=== PATIENT | female | born 1940 | race Caucasian/White ===

== ENCOUNTER 2024-04-22 15:50 | Emergency (ER) | payer BC, MEDICARE, SELFPAY ==
[2024-04-22] VITALS (11 sets, daily range): BP systolic 118–156; BP diastolic 65–78; PULSE 69–85; RESP 16–18; TEMP 36.4; O2SAT 96–100; BMI 23.6
--- NOTE | 2024-04-22 17:25 | DI.RAD.S_ITS ---
PROCEDURE: XR ACUTE ABDOMEN SERIES INDICATIONS: abd pain, ?constipation TECHNIQUE: One view chest and two views of the abdomen were acquired. COMPARISON: None. FINDINGS: Surgical changes and devices: None. Chest: Lungs are clear. Heart size is normal. No pleural effusions. No pneumoperitoneum. Abdomen: Dilated gas distended loops of small bowel predominantly in the left lower abdomen. Gaseous distension of the large bowel. Stool is seen within the rectum. No pneumoperitoneum. Bones: No suspicious bony lesions. IMPRESSION: Dilated gas distended small bowel loops predominantly in the left lower abdomen. Findings may represent ileus versus early/partial obstruction. Approved by: Kirstie Nye M.D.,Ph.D. on 04/22/2024 at 18:15
[2024-04-22 17:46] LABS: INR 0.9 (0.9-1.3); Prothrombin Time 10.7 SECONDS (9.4-12.5)
[2024-04-22 17:49] LABS: Add Manual Diff / Slide Review NO; Basophils Absolute Auto 0 /uL (0-100); Basophils Percent Auto 0.3 % (0-2); Eosinophils Absolute Auto 0 /uL (0-450); Eosinophils Percent Auto 0.2 % (2-4); Hematocrit 40.8 % (36-46); Hemoglobin 13.8 g/dL (12.0-16.0); Lymphocytes Absolute Auto 1900 /uL (1100-4500); Lymphocytes Percent Auto 30.3 % (25-40); Mean Corpuscular HGB Conc 33.7 % (30-36); Mean Corpuscular Hemoglobin 32.5 PG (26-34); Mean Corpuscular Volume 96.4 fL (80-100); Monocytes Absolute Auto 500 /uL (0-900); Monocytes Percent Auto 7.7 % (3-14); Neutrophils Absolute Auto 3800 /uL (1500-7000); Neutrophils Percent Auto 61.5 % (50-75); Platelet Count 237 X10^3/uL (150-400); Red Blood Cell Count 4.23 X10^6/uL (4.0-5.2); Red Cell Distribution Width 13.4 % (11.6-14.8); White Blood Cell Count 6.2 X10^3/uL (4.5-11.0)
[2024-04-22 18:09] LABS: Alanine Aminotransferase 25 IU/L (<35); Albumin 4.5 g/dL (3.5-5.0); Albumin Globulin Ratio 1.6 (1.0-2.8); Alkaline Phosphatase 80 U/L (38-126); Aspartate Aminotransferase 34 IU/L (14-36); BUN Creatinine Ratio 23.2 (6-22); Bilirubin Total 0.5 mg/dL (0.2-1.3); Blood Urea Nitrogen 13 mg/dL (7-17); Calcium 9.9 mg/dL (8.4-10.2); Carbon Dioxide 25 mmol/L (22-32); Chloride 94 mmol/L (98-107); Estimated Glomerular Filt Rate > 60 mL/min (>60); Globulin 2.8 g/dL (1.7-4.1); Glucose 109 mg/dL (80-110); HEMOLYSIS < 15 (0-50); Lipase 254 U/L (23-300); Potassium 3.8 mmol/L (3.4-5.1); Sodium 127 mmol/L (137-145); Total Protein 7.3 g/dL (6.3-8.2)
--- NOTE | 2024-04-22 18:22 | DI.CT.S_ITS ---
PROCEDURE: CT ABDOMEN PELVIS W CON INDICATIONS: ABD DISTENSION TECHNIQUE: After the administration of intravenous contrast, axial sections acquired from the lung bases to the pubic symphysis. Coronal and sagittal reformats were performed. For radiation dose reduction, the following was used: automated exposure control, adjustment of mA and/or kV according to patient size. COMPARISON: None. FINDINGS: Image quality: Diagnostic. Lower Chest: No significant findings. ABDOMEN: Liver: No solid mass. Gallbladder: No radiopaque gallstones or wall thickening. Biliary ducts: No biliary dilation. Pancreas: No ductal dilation. Spleen: Size is within normal limits. Adrenal Glands: No adrenal nodules. Kidneys and Ureters: Mild bilateral hydronephrosis. No solid mass. No complex renal cystic lesion which requires follow up. Stomach and Bowel: Normal colonic caliber, without significant wall thickening. No evidence of small-bowel obstruction. Gas distended loops of large bowel. Rectal stool ball without significant inflammation. Normal caliber appendix in the right lower quadrant. Peritoneum: No abnormal intraperitoneal fluid. No free air. Ventral Wall: No significant ventral hernia. Abdominal Nodes: No retroperitoneal or mesenteric adenopathy by size criteria. Vessels: Aorta and inferior vena cava are normal in size. PELVIS: Pelvic Organs: Unremarkable. Bladder: Markedly distended bladder. No abnormal or focal wall thickening . Pelvic Nodes: No enlarged lymph nodes. Miscellaneous: No inguinal hernias are seen. Bones: No aggressive osseous abnormality. Degenerative changes without acute vertebral body compression fracture. IMPRESSION: Markedly distended bladder with mild associated hydronephrosis. Large rectal stool ball with mild surrounding soft tissue thickening which can be seen in the setting of stercoral colitis. Approved by: Kirstie Nye M.D.,Ph.D. on 04/22/2024 at 19:07
[2024-04-22] MEDS: GLYCERIN SUPP ADULT 1 SUPP 1 EACH PR (18:50)
--- NOTE | 2024-04-22 19:27 | ED.ABDPAIN ---
HPI - Abdominal Pain General Chief Complaint: Abdominal Pain Stated Complaint: constipation, ABD pain Time Seen by Provider: 04/22/24 17:25 History of Present Illness HPI narrative: 84-year-old female presents by EMS from home for several days of abdominal pain and constipation. Patient was a poor historian and family member at bedside also unable to provide much additional history. They deny history of dementia but patient does not appear to have good memory and does seem confused, however she was reported to be at her baseline mental status. Patient recently moved to [place] from [place]. Her granddaughter is providing caretaking at home. Over the last several days patient was had worsening abdominal distention and swelling. She was not had a bowel movement in multiple days despite enema administration at home. Exam Initial Vital Signs Initial Vital Signs: Vital Signs Temperature 97.6 F 04/22/24 16:02 Pulse Rate 85 04/22/24 16:02 Respiratory Rate 16 04/22/24 16:02 Blood Pressure 118/69 04/22/24 16:02 Pulse Oximetry 100 04/22/24 16:02 Oxygen Delivery Method Room Air 04/22/24 16:02 Const: Awake, alert, no acute distress, Frail Cardiac: regular rate, regular rhythm RESP: unlabored, clear bilaterally, no wheezing GI: Soft, lower abdominal distention, generalized tenderness to palpation Skin: Warm, Dry, intact, no rashes Neuro: AO x2, CN II-XII grossly intact, moves all extremities Course Orders Ordered: ED Orders 04/22/24 16:10 Complete Blood Count AUTO DIFF Stat Comprehensive Metabolic Panel Stat Lipase Stat Prothrombin Time INR Stat 04/22/24 17:25 XR acute abdomen series Stat 04/22/24 17:38 EKG-12 Lead Stat 04/22/24 18:22 CT abdomen pelvis w con Stat Discontinued Medications Glycerin (Glycerin Supp Adult 1 Supp) 1 each KS NOW ONE Stop: 04/22/24 18:23 Last Admin: 04/22/24 18:50 Dose: 1 each Documented By: FRANCISCO JAVIER Morphine Sulfate (Morphine 4 Mg/Ml Inj) 4 mg IV NOW ONE Stop: 04/22/24 19:27 Last Admin: 04/22/24 22:08 Dose: Not Given Documented By: FRANCISCO JAVIER Ondansetron HCl (Ondansetron 4 Mg/2 Ml Inj) 4 mg IV NOW PRN PRN Reason: Nausea And Vomiting Ondansetron HCl (Ondansetron 4 Mg Odt) 4 mg PO NOW PRN PRN Reason: Nausea And Vomiting Sodium Biphosphate/Sodium Phosphate (Fleets Enema) 2 each KS NOW ONE Stop: 04/22/24 20:35 Last Admin: 04/22/24 21:01 Dose: 1 each Documented By: FRANCISCO JAVIER Vital Signs Vital signs: Vital Signs - 8 hr 04/22/24 16:02 04/22/24 17:36 04/22/24 17:36 Temperature 97.6 F Pulse Rate 85 75 Respiratory Rate 16 Blood Pressure 118/69 147/73 H Pulse Oximetry 100 99 Oxygen Delivery Method Room Air 04/22/24 18:00 04/22/24 18:00 04/22/24 18:30 Temperature Pulse Rate 75 76 Respiratory Rate Blood Pressure 143/65 H Pulse Oximetry 100 100 Oxygen Delivery Method 04/22/24 18:30 04/22/24 18:48 04/22/24 18:48 Temperature Pulse Rate 73 Respiratory Rate Blood Pressure 156/78 H 154/67 H Pulse Oximetry 100 Oxygen Delivery Method 04/22/24 19:00 04/22/24 19:00 04/22/24 19:30 Temperature Pulse Rate 69 Respiratory Rate Blood Pressure 156/72 H 156/78 H Pulse Oximetry 99 Oxygen Delivery Method 04/22/24 19:30 04/22/24 20:10 04/22/24 20:30 Temperature Pulse Rate 75 71 73 Respiratory Rate 18 18 Blood Pressure Pulse Oximetry 100 98 96 Oxygen Delivery Method 04/22/24 21:31 04/22/24 21:32 Temperature Pulse Rate 75 Respiratory Rate 18 Blood Pressure 152/66 H Pulse Oximetry 98 Oxygen Delivery Method MDM - Abdominal Pain Differential Diagnosis Differential diagnosis: Likely abdominal pain, constipation and diverticulitis Lab Data 04/22/24 16:10 04/22/24 16:10 Labs: Lab Results 04/22/24 Range/Units 16:10 WBC 6.2 (4.5-11.0) X10^3/uL RBC 4.23 (4.0-5.2) X10^6/uL Hgb 13.8 (12.0-16.0) g/dL Hct 40.8 (36-46) % MCV 96.4 (80-100) fL MCH 32.5 (26-34) PG MCHC 33.7 (30-36) % RDW 13.4 (11.6-14.8) % Plt Count 237 (150-400) X10^3/uL Neut % (Auto) 61.5 (50-75) % Lymph % (Auto) 30.3 (25-40) % Merrick % (Auto) 7.7 (3-14) % Eos % (Auto) 0.2 L (2-4) % Baso % (Auto) 0.3 (0-2) % Neut # (Auto) 3800 (6623-3134) /uL Lymph # (Auto) 1900 (1826-3435) /uL Merrick # (Auto) 500 (0-900) /uL Eos # (Auto) 0 (0-450) /uL Baso # (Auto) 0 (0-100) /uL PT 10.7 (9.4-12.5) SECONDS INR 0.9 (0.9-1.3) Sodium 127 L (137-145) mmol/L Potassium 3.8 (3.4-5.1) mmol/L Chloride 94 L (98-107) mmol/L Carbon Dioxide 25 (22-32) mmol/L BUN 13 (7-17) mg/dL Creatinine 0.56 (0.52-1.04) mg/dL Estimated GFR > 60 (>60) mL/min BUN/Creatinine Ratio 23.2 H (6-22) Glucose 109 (80-110) mg/dL Calcium 9.9 (8.4-10.2) mg/dL Total Bilirubin 0.5 (0.2-1.3) mg/dL AST 34 (14-36) IU/L ALT 25 (<35) IU/L Alkaline Phosphatase 80 (38-126) U/L Total Protein 7.3 (6.3-8.2) g/dL Albumin 4.5 (3.5-5.0) g/dL Globulin 2.8 (1.7-4.1) g/dL Albumin/Globulin Ratio 1.6 (1.0-2.8) Lipase 254 (23-300) U/L Point of care testing: Urine Dip Bedside Urine Glucose Negative Bedside Urine Bilirubin - Negative Bedside Urine Ketone - Negative Urine Specific [place] 1.005 Bedside Urine Occult Blood - Negative Bedside Urine pH 7.5 Bedside Urine Protein - Negative Bedside Urine Urobilinogen - Negative Bedside Urine Nitrite - Negative Bedside Urine Leukocytes - Negative Esterase Imaging Data CT scan - abdomen/pelvis: Radiologist's Impression: PROCEDURE: CT ABDOMEN PELVIS W CON INDICATIONS: ABD DISTENSION TECHNIQUE: After the administration of intravenous contrast, axial sections acquired from the lung bases to the pubic symphysis. Coronal and sagittal reformats were performed. For radiation dose reduction, the following was used: automated exposure control, adjustment of mA and/or kV according to patient size. COMPARISON: None. FINDINGS: Image quality: Diagnostic. Lower Chest: No significant findings. ABDOMEN: Liver: No solid mass. Gallbladder: No radiopaque gallstones or wall thickening. Biliary ducts: No biliary dilation. Pancreas: No ductal dilation. Spleen: Size is within normal limits. Adrenal Glands: No adrenal nodules. Kidneys and Ureters: Mild bilateral hydronephrosis. No solid mass. No complex renal cystic lesion which requires follow up. Stomach and Bowel: Normal colonic caliber, without significant wall thickening. No evidence of small-bowel obstruction. Gas distended loops of large bowel. Rectal stool ball without significant inflammation. Normal caliber appendix in the right lower quadrant. Peritoneum: No abnormal intraperitoneal fluid. No free air. Ventral Wall: No significant ventral hernia. Abdominal Nodes: No retroperitoneal or mesenteric adenopathy by size criteria. Vessels: Aorta and inferior vena cava are normal in size. PELVIS: Pelvic Organs: Unremarkable. Bladder: Markedly distended bladder. No abnormal or focal wall thickening . Pelvic Nodes: No enlarged lymph nodes. Miscellaneous: No inguinal hernias are seen. Bones: No aggressive osseous abnormality. Degenerative changes without acute vertebral body compression fracture. IMPRESSION: Markedly distended bladder with mild associated hydronephrosis. Large rectal stool ball with mild surrounding soft tissue thickening which can be seen in the setting of stercoral colitis. Approved by: Kirstie Nye M.D.,Ph.D. on 04/22/2024 at 19:07 MDM Narrative Medical decision making narrative: frail but nontoxic patient presenting with 3 days of symptoms. History is limited as patient is poor historian and family unable to provide much additional history. Abdomen soft but definitely distended. IV pain medications ordered, labs, CT imaging ordered. Laboratory work shows significant stool burden, urinary retention. Family states that they gave triage nurse a list of medications, but I can not find this list of medications and they do not know the names off the top of their head. Catheter was placed with drainage of 1 L of clear yellow urine. After glycerin suppository and enema patient had large bowel movement. She reported feeling significantly better after catheter placement and bowel movement. Laboratory work reviewed, only abnormal value is sodium of 127. Uncertain chronicity as patient has no previous lab values, however she currently feels much better and has primary care appointment scheduled for tomorrow. Family given clean out regimen protocol and catheter instructions. Urology follow up referral number provided. Discharge Plan Departure Patient Disposition: Home Clinical Impression: Constipation, Acute urinary retention Instructions: DI for Constipation, How to Care for Your Hawk Catheter -- Female, DI for Urinary Retention in Women Activity Restrictions/Additional Instructions: Your blood work today looked good. On your CT scan you had both constipation and urinary retention, which is why you were so uncomfortable. The catheter will need to stay in place until you follow up with primary care or Urology. Take a daily stool softener to help prevent constipation. Follow the clean out protocol paperwork provided Referrals: Lana Lomeli ARNP [Primary Care Provider] - David Samuel MD [Physician] - Stand Alone Forms: Patient Portal/API/Survey
[2024-04-22] MEDS: FLEETS ENEMA 2 EACH PR (21:01)
== END 2024-04-22 22:07 | disposition home or self-care (01) ==
PROVIDERS: Emergency Medicine; Emergency Provider Emergency Medicine; PCP Nurse Practitioner
DX: K59.00 Constipation, unspecified (principal); R33.9 Retention of urine, unspecified
CPT/HCPCS: 74022; 74177; 80053; 81003; 83690; 85025; 85610; 99283; 99284; Q9967

== ENCOUNTER → 2024-05-02 14:35 | Outpatient (ROUT) | payer MEDICARE, SELFPAY ==
[2024-05-02 14:57] LABS: Add Manual Diff / Slide Review NO; Alanine Aminotransferase 24 IU/L (<35); Albumin 4.2 g/dL (3.5-5.0); Albumin Globulin Ratio 1.6 (1.0-2.8); Alkaline Phosphatase 55 U/L (38-126); Aspartate Aminotransferase 30 IU/L (14-36); BUN Creatinine Ratio 27.6 (6-22); Basophils Absolute Auto 0 /uL (0-100); Basophils Percent Auto 0.5 % (0-2); Bilirubin Total 0.3 mg/dL (0.2-1.3); Blood Urea Nitrogen 16 mg/dL (7-17); Calcium 9.5 mg/dL (8.4-10.2); Carbon Dioxide 26 mmol/L (22-32); Chloride 97 mmol/L (98-107); Cholesterol 187 mg/dL (140-199); Eosinophils Absolute Auto 500 /uL (0-450); Eosinophils Percent Auto 8.9 % (2-4); Estimated Glomerular Filt Rate > 60 mL/min (>60); Globulin 2.7 g/dL (1.7-4.1); Glucose 104 mg/dL (80-110); HDL Cholesterol 86 mg/dL (40-60); HEMOLYSIS < 15 (0-50); Hemoglobin 13.6 g/dL (12.0-16.0); LDL Cholesterol Calculated 76 mg/dL (<100); Lymphocytes Absolute Auto 300 /uL (1100-4500); Lymphocytes Percent Auto 5.6 % (25-40); Mean Corpuscular HGB Conc 33.9 % (30-36); Mean Corpuscular Hemoglobin 32.5 PG (26-34); Mean Corpuscular Volume 96.1 fL (80-100); Monocytes Absolute Auto 100 /uL (0-900); Monocytes Percent Auto 1.4 % (3-14); Neutrophils Absolute Auto 5200 /uL (1500-7000); Neutrophils Percent Auto 83.6 % (50-75); Platelet Count 252 X10^3/uL (150-400); Potassium 3.9 mmol/L (3.4-5.1); Red Blood Cell Count 4.17 X10^6/uL (4.0-5.2); Red Cell Distribution Width 13.2 % (11.6-14.8); Sodium 130 mmol/L (137-145); Total Protein 6.9 g/dL (6.3-8.2); Triglycerides 123 mg/dL (35-150); White Blood Cell Count 6.2 X10^3/uL (4.5-11.0)
[2024-05-02 15:14] LABS: Free T3, Triiodothyronine Free 3.26 pg/mL (2.77-5.27); Free T4, Direct Thyroxine 1.22 ng/dL (0.78-2.19)
[2024-05-02 15:28] LABS: Thyroid Stimulating Hormone 1.25 uIU/mL (0.47-4.68)
== END ==
PROVIDERS: PCP Nurse Practitioner; Visit Provider Nurse Practitioner
DX: E11.610 Type 2 diabetes mellitus with diabetic neuropathic arthropathy (principal); M85.80 Other specified disorders of bone density and structure, unspecified site; I10 Essential (primary) hypertension; K59.00 Constipation, unspecified; F02.A4 Dementia in other diseases classified elsewhere, mild, with anxiety
CPT/HCPCS: 80053; 80061; 84439; 84443; 84481; 85025

== ENCOUNTER → 2024-05-05 08:56 | Outpatient (CLI) | payer MEDICARE, SELFPAY | PROVIDERS: PCP Nurse Practitioner; Visit Provider Urology | DX: N30.01 Acute cystitis with hematuria (principal); R33.8 Other retention of urine; K59.00 Constipation, unspecified; Z87.448 Personal history of other diseases of urinary system | CPT/HCPCS: 51798; 81002; 87077; 87086; 87186; 99214 ==

== ENCOUNTER → 2024-06-07 14:04 | Outpatient (CLI) | payer MEDICARE, SELFPAY ==
[2024-06-07 14:43] LABS: Appearance Urine UA CLEAR; Bilirubin Urine UA NEGATIVE (NEGATIVE); Color Urine UA YELLOW; Glucose Urine UA NEGATIVE (Negative); Ketones Urine UA NEGATIVE (NEGATIVE); Leukocyte Esterase Urine UA NEGATIVE (NEGATIVE); Nitrite Urine UA NEGATIVE (Negative); Occult Blood Urine UA NEGATIVE (Negative); Protein Urine UA NEGATIVE (Negative); Urobilinogen Urine UA 0.2 E.U./dL (0.2)
[2024-06-07 14:44] LABS: Bacteria Urine None Seen; Culture Indicated Urine Cult Not Indicated; RBC Urine 0-1/HPF (0-5/HPF); Squamous Epithelial Cell Urine 1-5 /HPF (0-5/HPF); Urine Volume 10mL (spun); WBC Urine 0-1/HPF (0-5/HPF)
== END ==
LOC: LAB 14:07
PROVIDERS: Family Provider Nurse Practitioner; PCP Nurse Practitioner; Referring Provider Nurse Practitioner; Visit Provider Nurse Practitioner
DX: R41.0 Disorientation, unspecified (principal)
CPT/HCPCS: 81001

== ENCOUNTER → 2024-07-04 13:02 | Outpatient (CLI) | payer MEDICARE, SELFPAY ==
--- NOTE | 2024-07-04 13:03 | DI.US.S_ITS ---
PROCEDURE: US RENAL COMPLETE INDICATIONS: Rule out persistent hydronephrosis TECHNIQUE: Real-time scanning was performed of the kidneys and bladder, with image documentation. COMPARISON: None. FINDINGS: Kidneys: Kidneys are normal in size. Right kidney measures 11.2 cm long; left kidney measures 1.1 cm long. Right renal cortical thickness is 8.6 cm; left renal cortical thickness is 1.4 cm. Renal cortical echotexture is normal. No hydronephrosis or nephrolithiasis. No suspicious solid mass lesions. Bladder: Pre-void bladder volume is 94 mL. Post-void residual is 0 mL. Pre-void images demonstrate no intraluminal masses or stones. On pre-void images, neither ureteral jets are noted with color Doppler interrogation. (Of note, ureteral jets may not be detectable in up to 25% of cases due to insufficient differences in specific gravity between ureteral and bladder urine). Miscellaneous: No free pelvic fluid. IMPRESSION: No hydronephrosis. Dictated by: Max Genao M.D. on 07/04/2024 at 19:12 Approved by: Max Genao M.D. on 07/04/2024 at 19:13
== END ==
PROVIDERS: Family Provider Nurse Practitioner; Referring Provider Urology; Visit Provider Urology
DX: Z87.448 Personal history of other diseases of urinary system (principal); Z09 Encounter for follow-up examination after completed treatment for conditions other than malignant neoplasm
CPT/HCPCS: 76770

== ENCOUNTER 2024-07-19 09:45 | Outpatient (RCR) | payer MEDICARE, SELFPAY ==
--- NOTE | 2024-06-22 15:46 | PT.OPPOC ---
Physical, Occupational & Speech Therapy At [facility] Current Diagnoses Hemarthrosis, left shoulder (06/22/24) Pain in right shoulder (06/22/24) Pain in left shoulder (06/22/24) Muscle weakness (generalized) (06/22/24) Visit Care Team Role Provider Type YAIR Larkin Attending Provider Advanced [employer] Worker Family Provider Primary Care Provider Referring Provider Specialty: Family Practice Address: Email: [email or web address] Plan Of Care PT-OP-B Current Condition Start: 06/20/24 07:26 Freq: Status: Active Protocol: Document 06/22/24 10:46 MB (Rec: 06/22/24 11:27 MB [id number]) Current Condition History of Current Condition Onset Date April 2024 Current Complaints Right greater than left shoulder pain History of Current Condition 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 Her right shoulder has started to bother her more since she moved to [place] from [place] in April. She had worked out often in [place] and has worked out less since her fell and broke his hip. He is I. 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 Fauzia has been taking her to [employer] and she has been getting on the treadmill. Any band exercises for shoulders has increased pain. Pt denies headaches and neck pain. Pt is sleeping pretty well. Pt does not have any numbness or tingling in the arms. Fauzia reports that pt has lost a lot of weight, about 14 lb before she moved up to stay with niece. Fauzia reports that pt's stamina has decreased. Heart monitor has been ordered as her BP and HR have been jumping all over the place. Pt had one vertigo spell recently. Prior Treatments and Tests None for shoulders Treatment Goals Patient/Caregiver Goals To increase shoulder ROM and decrease pain PT-OP-T Assessment and Plan Start: 06/20/24 07:26 Freq: Status: Active Protocol: Document 06/22/24 10:46 MB (Rec: 06/22/24 11:27 MB [id number]) Physical Therapy Assessment Goals 3 Impairment Evidence of imbalance Rope Cutter Goal (LTG) Pt will perform WNLs on a standardized balance test such as TUG, Tinetti or Hopson to decrease fall risk. LTG Duration 8 weeks 2 Impairment Lack of HEP Care Home Goal (LTG) Pt will perform progressive HEP with cues including shoulder and thoracic ROM and flexibility, postural exercises, balance and strengthening to improve pain and function. LTG Duration 8 weeks 1 Impairment Limited and painful B shoulder ROM Rope Cutter Goal (LTG) Pt will perform B active shoulder flexion and abduction to at least 150 deg to improve functional use of arms with dressing, bathing and reaching overhead. LTG Duration 8 weeks Assessment Summary Assessment Pt is an 84 y/o female presenting to PT with her niece and caregiver, Fauzia. Fauzia fills out pt's paperwork and answers most questions as she reports pt has dementia. Pt has trouble answering all questions. Fauzia is supportive and will be able to attend OPPT appointments and assist with HEP. Given pt's challenges with answering questions, use of QuickDASH for goals is not indicated. Fauzia reports pt has had some energy issues and will get a archivist [employer] d/t BP and HR changes. Orthostatic assessment with BP and HR in LUE: supine 157/67, 70; standing 136/64, 77; standing 1' 138/72, 75. Pt takes BP medication and she already took medication this a.m. Pt presents with significant postural changes in spine including kyphoscoliosis and pelvic obliquities, forward head, and changes in shoulder height and scapular positioning. She reports anterior shoulder pain with AROM and she presents with severe limitations in B active and passive shoulder ROM, worse on the right. Right elbow MMT is mildly weaker than the left and deferred shoulder testing in setting of limitations. Pt also presents with decreased cervical ROM. Overall, pt presents as an evolving B adhesive capsulitis functional presentation. Pt's degenerative postural changes and decreased cognition are barriers to PT. Once again, her niece is very supportive. Unsure of any other baseline issues such as osteoporosis or osteopenia and pt does present somewhat frail. She will benefit from PT trial to improve pain, range and function. Pt may benefit from orthopedic consult in the future to determine if any other interventions are indicated. Thank you for this referral. Physical Therapy Plan Frequency and Duration Frequency of Treatment 2x/Week Duration of treatment (weeks) 8 Plan of Care Start Date 06/22/24 Plan of Care End Date 08/19/24 Therapeutic Interventions Therapeutic Interventions Balance Training,Canalithic Repositioning,Coordination Training,Gait Training,Home Exercise Program,Joint Mobilizations,Manual Therapy, Neuromuscular Re-education, Patient/Caregiver Education, Self-Care/Home Management, Sensory Integration,Soft Tissue Mobilization,Taping, Therapeutic Activities, Therapeutic Exercises Modalities Cold Pack/Ice Massage,Electric Stimulation,Hot Packs, Ultrasound Next Visit Focus/Plan Next Note Type Treatment Note Next Visit Plan Pelvic realignment exercies, try open book and pulleys, initiate manual work Plan of Care Dates Plan of Care Start Date 06/22/24 Plan of Care End Date 08/19/24 Electronically Signed by: Lulú Smith, PT 06/22/24 0086 If you are in agreement with this Plan of Care, please return a signed and dated copy. I have reviewed this Plan of Care and certify that the skilled therapy services above are required to meet the patient?s needs. Physician Signature Date Printed Name and Credentials Clinical Instructor Signature Printed Name and Credentials
--- NOTE | 2024-06-22 15:47 | PT.OIE ---
Current Diagnoses Hemarthrosis, left shoulder (06/22/24) Pain in right shoulder (06/22/24) Pain in left shoulder (06/22/24) Muscle weakness (generalized) (06/22/24) Past Medical History (Last Updated 05/05/24 @ 09:52 by David Samuel MD) History of hydronephrosis Urinary tract infection Visit Care Team Role Provider Type YAIR Larkin Attending Provider Advanced Manager Of Internal Audit Family Provider Primary Care Provider Referring Provider Specialty: Family Practice Address: Email: [email or web address] Therapy Initial Evaluation PT-OP-A Visit Information Start: 06/20/24 07:26 Freq: Status: Active Protocol: Document 06/22/24 10:46 MB (Rec: 06/22/24 11:27 MB [id number]) Out-Patient Physical Therapy Visit Information Visit Information Visit Type Initial Evaluation Visit Note Fauzia Pratt, arrives to appointment Visit Start Time 10:46 Visit Stop Time 11:26 Visit Number 1 Number of CIGAR PACKER AND SHADER Visits 0 Evaluation Information Evaluation Date 06/22/24 PT-OP-B Current Condition Start: 06/20/24 07:26 Freq: Status: Active Protocol: Document 06/22/24 10:46 MB (Rec: 06/22/24 11:27 MB [id number]) Current Condition History of Current Condition Onset Date April 2024 Current Complaints Right greater than left shoulder pain History of Current Condition 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 Her right shoulder has started to bother her more since she moved to [place] from [place] in April. She had worked out often in [place] and has worked out less since her fell and broke his hip. He is I. 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 Fauzia has been taking her to [employer] and she has been getting on the treadmill. Any band exercises for shoulders has increased pain. Pt denies headaches and neck pain. Pt is sleeping pretty well. Pt does not have any numbness or tingling in the arms. Fauzia reports that pt has lost a lot of weight, about 14 lb before she moved up to stay with chace. Fauzia reports that pt's stamina has decreased. Heart monitor has been ordered as her BP and HR have been jumping all over the place. Pt had one vertigo spell recently. Prior Treatments and Tests None for shoulders Treatment Goals Patient/Caregiver Goals To increase shoulder ROM and decrease pain PT-OP-C Subjective Start: 06/20/24 07:26 Freq: Status: Active Protocol: Document 06/22/24 10:46 MB (Rec: 06/22/24 11:27 MB [id number]) OP-PT Subjective Patient Comments Patient Comments See history of current condition PT-OP-J Posture/Palpation/Skin Start: 06/20/24 07:26 Freq: Status: Active Protocol: Document 06/22/24 10:46 MB (Rec: 06/22/24 11:27 MB [id number]) Posture Evaluation Comments Posture Comments Standing posture with shoes on : head rests in right SB, mild increase in thoracic kyphosis , and right convexity and change to left convexity lower thoracic and lumbar spine and left iliac crest 1/2 higher than the right. Decreased cervical lordosis, increased forward head, mild Dowager's hump, anterior rounded shoulders, right shoulder higher than the left, right shoulder more forward/winged than the left and slightly elevated. PT-OP-K Range of Motion Start: 06/20/24 07:26 Freq: Status: Active Protocol: Document 06/22/24 10:46 MB (Rec: 06/22/24 11:27 MB [id number]) Cervical Spine Range of Motion Cervical Spine Active Testing Position Standing Flexion 42 Extension 30 Rotation Left 50 Rotation Right 50 Lateral Flexion Left 5 Lateral Flexion Right 10 Shoulder Goniometric Range of Motion Shoulder Left Shoulder ROM WFL No Testing Position Standing Flexion 120 Extension 56 Abduction 110 Comments Flexion in scaption plane and pain PT c/o pain with abduction as well Active left IR behind back to T6 In supine, passive ER in 90/90 to 45 deg and ER to 30 deg and painful Right Shoulder ROM WFL No Testing Position Standing Flexion 110 Extension 45 Abduction 100 Comments Flexion in scaption plane and pain Pt c/o pain with abduction as well Active right IR behind back to T12 Pt is right handed In supine, passive abduction to 60 deg only and painful and then ER to 30 deg and IR to 15 deg PT-OP-M Strength Start: 06/20/24 07:26 Freq: Status: Active Protocol: Document 06/22/24 10:46 MB (Rec: 06/22/24 11:27 MB [id number]) Shoulder Strength Shoulder Manual Muscle Testing Bilateral Comments Did not MMT shoulder given reduced range and pain Elbow/Forearm Strength Elbow and Forearm Manual Muscle Testing Left Flexion (C6) 5 Normal Extension (C7) 5 Normal Pronation 5 Normal Supination 5 Normal Right Flexion (C6) 5 Normal Extension (C7) 5 Normal Pronation 4 Good Supination 5 Normal PT-OP-Q Treatments Start: 06/20/24 07:26 Freq: Status: Active Protocol: Document 06/22/24 10:46 MB (Rec: 06/22/24 15:46 MB [id number]) Self-Care/Home Management Treatment Education Patient Education Body Mechanics,Fall Risk,Joint Protection,Pain Management, Posture Other Education Extensive education to pt and niece about PT findings and functional clinical picture, plan to include posture, flexibility and then strengthening in range as appropriate, benefits of ice and heat and pt prefers heat, possible kvng trial in future treatment PT-OP-T Assessment and Plan Start: 06/20/24 07:26 Freq: Status: Active Protocol: Document 06/22/24 10:46 MB (Rec: 06/22/24 11:27 MB [id number]) Physical Therapy Assessment Goals 3 Impairment Evidence of imbalance Mcfp Goal (LTG) Pt will perform WNLs on a standardized balance test such as TUG, Tinetti or Hopson to decrease fall risk. LTG Duration 8 weeks 2 Impairment Lack of HEP Mcfp Goal (LTG) Pt will perform progressive HEP with cues including shoulder and thoracic ROM and flexibility, postural exercises, balance and strengthening to improve pain and function. LTG Duration 8 weeks 1 Impairment Limited and painful B shoulder ROM Vegetable Buncher Goal (LTG) Pt will perform B active shoulder flexion and abduction to at least 150 deg to improve functional use of arms with dressing, bathing and reaching overhead. LTG Duration 8 weeks Assessment Summary Assessment Pt is an 84 y/o female presenting to PT with her niece and caregiver, Fauzia. Fauzia fills out pt's paperwork and answers most questions as she reports pt has dementia. Pt has trouble answering all questions. Fauzia is supportive and will be able to attend OPPT appointments and assist with HEP. Given pt's challenges with answering questions, use of QuickDASH for goals is not indicated. Fauzia reports pt has had some energy issues and will get a aws software development engineer d/t BP and HR changes. Orthostatic assessment with BP and HR in LUE: supine 157/67, 70; standing 136/64, 77; standing 1' 138/72, 75. Pt takes BP medication and she already took medication this a.m. Pt presents with significant postural changes in spine including kyphoscoliosis and pelvic obliquities, forward head, and changes in shoulder height and scapular positioning. She reports anterior shoulder pain with AROM and she presents with severe limitations in B active and passive shoulder ROM, worse on the right. Right elbow MMT is mildly weaker than the left and deferred shoulder testing in setting of limitations. Pt also presents with decreased cervical ROM. Overall, pt presents as an evolving B adhesive capsulitis functional presentation. Pt's degenerative postural changes and decreased cognition are barriers to PT. Once again, her niece is very supportive. Unsure of any other baseline issues such as osteoporosis or osteopenia and pt does present somewhat frail. She will benefit from PT trial to improve pain, range and function. Pt may benefit from orthopedic consult in the future to determine if any other interventions are indicated. Thank you for this referral. Physical Therapy Plan Frequency and Duration Frequency of Treatment 2x/Week Duration of treatment (weeks) 8 Plan of Care Start Date 06/22/24 Plan of Care End Date 08/19/24 Therapeutic Interventions Therapeutic Interventions Balance Training,Canalithic Repositioning,Coordination Training,Gait Training,Home Exercise Program,Joint Mobilizations,Manual Therapy, Neuromuscular Re-education, Patient/Caregiver Education, Self-Care/Home Management, Sensory Integration,Soft Tissue Mobilization,Taping, Therapeutic Activities, Therapeutic Exercises Modalities Cold Pack/Ice Massage,Electric Stimulation,Hot Packs, Ultrasound Next Visit Focus/Plan Next Note Type Treatment Note Next Visit Plan Pelvic realignment exercies, try open book and pulleys, initiate manual work
--- NOTE | 2024-06-28 12:24 | PT.OTN ---
Current Diagnoses Hemarthrosis, left shoulder (06/28/24) Pain in right shoulder (06/28/24) Pain in left shoulder (06/28/24) Muscle weakness (generalized) (06/28/24) Physical Therapy Treatment Note PT-OP-A Visit Information Start: 06/20/24 07:26 Freq: Status: Active Protocol: Document 06/28/24 11:32 MB (Rec: 06/28/24 12:24 MB [id number]) Out-Patient Physical Therapy Visit Information Visit Information Visit Type Treatment Note Visit Note Nimarleni is Fauzia Visit Start Time 11:32 Visit Stop Time 12:12 Visit Number 2 Number of DRILLING FIELD PROFESSIONAL Visits 0 Evaluation Information Evaluation Date 06/22/24 PT-OP-B Current Condition Start: 06/20/24 07:26 Freq: Status: Active Protocol: Document 06/22/24 10:46 MB (Rec: 06/22/24 11:27 MB [id number]) Current Condition History of Current Condition Onset Date April 2024 Current Complaints Right greater than left shoulder pain History of Current Condition 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 Her right shoulder has started to bother her more since she moved to [place] from [place] in April. She had worked out often in [place] and has worked out less since her fell and broke his hip. He is I. 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 Fauzia has been taking her to [employer] and she has been getting on the treadmill. Any band exercises for shoulders has increased pain. Pt denies headaches and neck pain. Pt is sleeping pretty well. Pt does not have any numbness or tingling in the arms. Fauzia reports that pt has lost a lot of weight, about 14 lb before she moved up to stay with chace. Fauzia reports that pt's stamina has decreased. Heart monitor has been ordered as her BP and HR have been jumping all over the place. Pt had one vertigo spell recently. Prior Treatments and Tests None for shoulders Treatment Goals Patient/Caregiver Goals To increase shoulder ROM and decrease pain PT-OP-C Subjective Start: 06/20/24 07:26 Freq: Status: Active Protocol: Document 06/28/24 11:32 MB (Rec: 06/28/24 12:24 MB [id number]) OP-PT Subjective Patient Comments Patient Comments Fauzia reports that pt's right shoulder is really sore today. She states pt has been complaining about it. PT-OP-J Posture/Palpation/Skin Start: 06/20/24 07:26 Freq: Status: Active Protocol: Document 06/22/24 10:46 MB (Rec: 06/22/24 11:27 MB [id number]) Posture Evaluation Comments Posture Comments Standing posture with shoes on : head rests in right SB, mild increase in thoracic kyphosis , and right convexity and change to left convexity lower thoracic and lumbar spine and left iliac crest 1/2 higher than the right. Decreased cervical lordosis, increased forward head, mild Dowager's hump, anterior rounded shoulders, right shoulder higher than the left, right shoulder more forward/winged than the left and slightly elevated. PT-OP-K Range of Motion Start: 06/20/24 07:26 Freq: Status: Active Protocol: Document 06/22/24 10:46 MB (Rec: 06/22/24 11:27 MB [id number]) Cervical Spine Range of Motion Cervical Spine Active Testing Position Standing Flexion 42 Extension 30 Rotation Left 50 Rotation Right 50 Lateral Flexion Left 5 Lateral Flexion Right 10 Shoulder Goniometric Range of Motion Shoulder Left Shoulder ROM WFL No Testing Position Standing Flexion 120 Extension 56 Abduction 110 Comments Flexion in scaption plane and pain PT c/o pain with abduction as well Active left IR behind back to T6 In supine, passive ER in 90/90 to 45 deg and ER to 30 deg and painful Right Shoulder ROM WFL No Testing Position Standing Flexion 110 Extension 45 Abduction 100 Comments Flexion in scaption plane and pain Pt c/o pain with abduction as well Active right IR behind back to T12 Pt is right handed In supine, passive abduction to 60 deg only and painful and then ER to 30 deg and IR to 15 deg PT-OP-M Strength Start: 06/20/24 07:26 Freq: Status: Active Protocol: Document 06/22/24 10:46 MB (Rec: 06/22/24 11:27 MB [id number]) Shoulder Strength Shoulder Manual Muscle Testing Bilateral Comments Did not MMT shoulder given reduced range and pain Elbow/Forearm Strength Elbow and Forearm Manual Muscle Testing Left Flexion (C6) 5 Normal Extension (C7) 5 Normal Pronation 5 Normal Supination 5 Normal Right Flexion (C6) 5 Normal Extension (C7) 5 Normal Pronation 4 Good Supination 5 Normal PT-OP-Q Treatments Start: 06/20/24 07:26 Freq: Status: Active Protocol: Document 06/28/24 11:32 MB (Rec: 06/28/24 12:24 MB [id number]) Therapeutic Exercises Supine Exercises Pelvic realignment exercises Supine Exercise Name HEP Side bilateral Equipment Used Blue ball Reps/Minutes 5 reps, 3 sec hold all exercises in order Comments Feet together ball squeeze iso , knee opp ankle iso, thigh press down iso Sidelying Exercises Open book Sidelying Exercise Name HEP Equipment Used Pillow doubled under head and pillow between legs Comments Cues to work in pain-free range and some pain with adducting right arm back Sitting Exercises Pulleys Sitting Exercise Name HEP: right flexion and scaption less than 90 deg in pain-free range Reps/Minutes Bicycling forward and backwards Comments Forward flexion and cues to limit in tolerable range, scaption Manual Therapy Treatment Consent Patient gave verbal consent for manual Yes treatment Other Other Manual Treatments Pt supine with head and legs supported: Positional release B pects, upper traps, infraspinatus, ribs PT-OP-T Assessment and Plan Start: 06/20/24 07:26 Freq: Status: Active Protocol: Document 06/28/24 11:32 MB (Rec: 06/28/24 12:24 MB [id number]) Physical Therapy Assessment Goals 3 Impairment Evidence of imbalance Hydro Electric Station Operator Goal (LTG) Pt will perform WNLs on a standardized balance test such as TUG, Tinetti or Hopson to decrease fall risk. LTG Duration 8 weeks 2 Impairment Lack of HEP Hydro Electric Station Operator Goal (LTG) Pt will perform progressive HEP with cues including shoulder and thoracic ROM and flexibility, postural exercises, balance and strengthening to improve pain and function. LTG Duration 8 weeks 1 Impairment Limited and painful B shoulder ROM Hydro Electric Station Operator Goal (LTG) Pt will perform B active shoulder flexion and abduction to at least 150 deg to improve functional use of arms with dressing, bathing and reaching overhead. LTG Duration 8 weeks Assessment Summary Assessment Pt has trouble following all commands and working in pain- free range. Pulleys are bothersome to her today. Pt is somewhat apprehensive with manual work, low pain tolerance. Con't PT trial and reassess if need to refer out to orthopedist given pt presentation and low tolerance to pain/treatment. Fauzia is very helpful. Physical Therapy Plan Frequency and Duration Frequency of Treatment 2x/Week Duration of treatment (weeks) 8 Plan of Care Start Date 06/22/24 Plan of Care End Date 08/19/24 Therapeutic Interventions Therapeutic Interventions Balance Training,Canalithic Repositioning,Coordination Training,Gait Training,Home Exercise Program,Joint Mobilizations,Manual Therapy, Neuromuscular Re-education, Patient/Caregiver Education, Self-Care/Home Management, Sensory Integration,Soft Tissue Mobilization,Taping, Therapeutic Activities, Therapeutic Exercises Modalities Cold Pack/Ice Massage,Electric Stimulation,Hot Packs, Ultrasound Next Visit Focus/Plan Next Note Type Treatment Note Next Visit Plan Review if needed (Fauzia may say review not needed, ask niece) : Pelvic realignment exercies and open book, try supine flexion with cane, AAROM shoulders, con't gentle manual work for neck, shoulders and thoracic spine, can consider doorway isometrics with ball for shoulder, scapular retraction and chin tucks
--- NOTE | 2024-07-01 12:15 | PT.OTN ---
Current Diagnoses Hemarthrosis, left shoulder (07/01/24) Pain in right shoulder (07/01/24) Pain in left shoulder (07/01/24) Muscle weakness (generalized) (07/01/24) Physical Therapy Treatment Note PT-OP-A Visit Information Start: 06/20/24 07:26 Freq: Status: Active Protocol: Document 07/01/24 11:32 SP (Rec: 07/01/24 12:41 SP [id number]) Out-Patient Physical Therapy Visit Information Visit Information Visit Type Treatment Note Visit Note Niece is Fauzia attends appt, give feedback if pt doesn't respond with details she noted pt reports at home. 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 Her right shoulder has started to bother her more since she moved to [place] from [place] in April. She had worked out often in [place] and has worked out less since her fell and broke his hip. He is I. 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 Fauzia has been taking her to [facility] and she has been getting on the treadmill. Any band exercises for shoulders has increased pain. Pt denies headaches and neck pain. Pt is sleeping pretty well. Pt does not have any numbness or tingling in the arms. Fauzia reports that pt has lost a lot of weight, about 14 lb before she moved up to stay with niece. Fauzia reports that pt's stamina has decreased. Heart monitor has been ordered as her BP and HR have been jumping all over the place. Pt had one vertigo spell recently. Prior Treatments and Tests None for shoulders Treatment Goals Patient/Caregiver Goals To increase shoulder ROM and decrease pain PT-OP-C Subjective Start: 06/20/24 07:26 Freq: Status: Active Protocol: Document 07/01/24 11:32 SP (Rec: 07/01/24 12:41 SP [id number]) OP-PT Subjective Patient Comments Patient Comments Pt reports soreness in R bicep /deltoid after last tx. Pt doesnt doesn't remember doing HEP today, neice reports pt performed with no problems. PT-OP-J Posture/Palpation/Skin Start: 06/20/24 07:26 Freq: Status: Active Protocol: Document 06/22/24 10:46 MB (Rec: 06/22/24 11:27 MB [id number]) Posture Evaluation Comments Posture Comments Standing posture with shoes on : head rests in right SB, mild increase in thoracic kyphosis , and right convexity and change to left convexity lower thoracic and lumbar spine and left iliac crest 1/2 higher than the right. Decreased cervical lordosis, increased forward head, mild Dowager's hump, anterior rounded shoulders, right shoulder higher than the left, right shoulder more forward/winged than the left and slightly elevated. PT-OP-K Range of Motion Start: 06/20/24 07:26 Freq: Status: Active Protocol: Document 06/22/24 10:46 MB (Rec: 06/22/24 11:27 MB [id number]) Cervical Spine Range of Motion Cervical Spine Active Testing Position Standing Flexion 42 Extension 30 Rotation Left 50 Rotation Right 50 Lateral Flexion Left 5 Lateral Flexion Right 10 Shoulder Goniometric Range of Motion Shoulder Left Shoulder ROM WFL No Testing Position Standing Flexion 120 Extension 56 Abduction 110 Comments Flexion in scaption plane and pain PT c/o pain with abduction as well Active left IR behind back to T6 In supine, passive ER in 90/90 to 45 deg and ER to 30 deg and painful Right Shoulder ROM WFL No Testing Position Standing Flexion 110 Extension 45 Abduction 100 Comments Flexion in scaption plane and pain Pt c/o pain with abduction as well Active right IR behind back to T12 Pt is right handed In supine, passive abduction to 60 deg only and painful and then ER to 30 deg and IR to 15 deg PT-OP-M Strength Start: 06/20/24 07:26 Freq: Status: Active Protocol: Document 06/22/24 10:46 MB (Rec: 06/22/24 11:27 MB [id number]) Shoulder Strength Shoulder Manual Muscle Testing Bilateral Comments Did not MMT shoulder given reduced range and pain Elbow/Forearm Strength Elbow and Forearm Manual Muscle Testing Left Flexion (C6) 5 Normal Extension (C7) 5 Normal Pronation 5 Normal Supination 5 Normal Right Flexion (C6) 5 Normal Extension (C7) 5 Normal Pronation 4 Good Supination 5 Normal PT-OP-Q Treatments Start: 06/20/24 07:26 Freq: Status: Active Protocol: Document 07/01/24 11:32 SP (Rec: 07/01/24 12:41 SP [id number]) Therapeutic Exercises Supine Exercises scap retraction Supine Exercise Name added to HEP /c HO Side bilateral Resistance arms straight at side Reps/Minutes 5 SH x5 Comments cued scap retraction, light hand press into table shld ROM Supine Exercise Name trialed FF to 90deg and serratus press Side bilateral Equipment Used dowel vs no device support Comments causes pain in front R shld- Hold Pelvic realignment exercises Supine Exercise Name HEP reviewed: Feet together ball squeeze iso, knee opp ankle iso, thigh pre Side bilateral Equipment Used Blue ball Reps/Minutes 5 reps, 3 sec hold all exercises in order Comments cued small range lift /c TA fac, slow engagement and release, not forceful Sidelying Exercises Open book Sidelying Exercise Name HEP Side bilateral Equipment Used Pillow doubled under head and pillow between legs Comments Cues to work in pain-free range and some pain tac. adducting right arm back Sitting Exercises Shld ER Sitting Exercise Name trialed AROM Side bilateral Resistance AROM Reps/Minutes 2 reps Comments cued posture, slow AROM- causes pain R shld to stopped scap retraction Sitting Exercise Name added to HEP /c HO Side bilateral Reps/Minutes 5 SH x5 Comments cued slow gentle contraction- no pain reported Manual Therapy Treatment Consent Patient gave verbal consent for manual Yes treatment Other Other Manual Treatments Pt hooklying with head and legs supported on pillow/wedge : Positional release B pects, upper traps, infraspinatus, deltoid, bicep; R>L GH PA and inferior glide; AAROM RUE FF up to 90 deg pnfree reported. L SL scapulothoracic (2 pillows under head and 1 between BLEs): PROM scapula adduction and depression, AAROM abduction ok through 110 deg painfree, better with humeral inf glide into OH tolerant range. PT-OP-T Assessment and Plan Start: 06/20/24 07:26 Freq: Status: Active Protocol: Document 07/01/24 11:32 SP (Rec: 07/01/24 12:41 SP [id number]) Physical Therapy Assessment Goals 3 Impairment Evidence of imbalance Desulfurizer Machine Goal (LTG) Pt will perform WNLs on a standardized balance test such as TUG, Tinetti or Hopson to decrease fall risk. LTG Duration 8 weeks 2 Impairment Lack of HEP Assisted Goal (LTG) Pt will perform progressive HEP with cues including shoulder and thoracic ROM and flexibility, postural exercises, balance and strengthening to improve pain and function. LTG Duration 8 weeks 1 Impairment Limited and painful B shoulder ROM Assisted Goal (LTG) Pt will perform B active shoulder flexion and abduction to at least 150 deg to improve functional use of arms with dressing, bathing and reaching overhead. LTG Duration 8 weeks Assessment Summary Assessment Pt cues for slow gentle movement and range and pressure during pelvic realignment ex review, follow correctly 2/5 reps. Gentle pressure STMs, small painfree R GH and Scapulothoracic Mobility PROM and PROM R UE. Trialed chest press, serratus press and FF for assess if ok for HEP, causes R shld pain so d/c. GOod response to scap retraction supine and seated, provided HO for carry over home set up and instructions use of HO. Ana bravo can assist pt with cuing needed. AAROM manual support good response if stay within painfreerange. Pt is unableto maintain self painfree range. Pt reports felt ok before left . Physical Therapy Plan Frequency and Duration Frequency of Treatment 2x/Week Duration of treatment (weeks) 8 Plan of Care Start Date 06/22/24 Plan of Care End Date 08/19/24 Therapeutic Interventions Therapeutic Interventions Balance Training,Canalithic Repositioning,Coordination Training,Gait Training,Home Exercise Program,Joint Mobilizations,Manual Therapy, Neuromuscular Re-education, Patient/Caregiver Education, Self-Care/Home Management, Sensory Integration,Soft Tissue Mobilization,Taping, Therapeutic Activities, Therapeutic Exercises Modalities Cold Pack/Ice Massage,Electric Stimulation,Hot Packs, Ultrasound Next Visit Focus/Plan Next Note Type Treatment Note Next Visit Plan Review if needed (Fauzia may say review not needed, ask niece) : Pelvic realignment exercies and open book, recheck scap retraction, can retry supine flexion with cane, AAROM shoulders, con't gentle manual work for neck, shoulders and thoracic spine, can consider doorway isometrics with ball for shoulder, scapular retraction and chin tucks
--- NOTE | 2024-07-05 10:21 | PT-OP ANOTE ---
Called primary contract number and spoke with [id number] (Jeannie) notifying of pt's missed appt. Jeannie states they thought her appt was at 11:30 today (based on message received) and she recommending contacting her daughter, Fauzia, who brings her to appts. Called and spoke with next of kin Fauzia to notify of pt's missed appt and notified her of pt's next appt time and date. Fauzia claims Sophy's appt was at 11:30 on her schedule and apologizes for missed appt.
--- NOTE | 2024-07-15 14:34 | PT.OTN ---
Current Diagnoses Hemarthrosis, left shoulder (07/15/24) Pain in right shoulder (07/15/24) Pain in left shoulder (07/15/24) Muscle weakness (generalized) (07/15/24) Physical Therapy Treatment Note PT-OP-A Visit Information Start: 06/20/24 07:26 Freq: Status: Active Protocol: Document 07/15/24 13:48 SP (Rec: 07/15/24 14:37 SP [id number]) Out-Patient Physical Therapy Visit Information Visit Information Visit Type Treatment Note Visit Note Niece is Fauzia attends appt, gives feedback if pt doesn't respond with details she noted pt reports at home. 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 Her right shoulder has started to bother her more since she moved to [place] from [place] in April. She had worked out often in [place] and has worked out less since her fell and broke his hip. He is I. 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 Fauzia has been taking her to [employer] and she has been getting on the treadmill. Any band exercises for shoulders has increased pain. Pt denies headaches and neck pain. Pt is sleeping pretty well. Pt does not have any numbness or tingling in the arms. Fauzia reports that pt has lost a lot of weight, about 14 lb before she moved up to stay with niece. Fauzia reports that pt's stamina has decreased. Heart monitor has been ordered as her BP and HR have been jumping all over the place. Pt had one vertigo spell recently. Prior Treatments and Tests None for shoulders Treatment Goals Patient/Caregiver Goals To increase shoulder ROM and decrease pain PT-OP-C Subjective Start: 06/20/24 07:26 Freq: Status: Active Protocol: Document 07/15/24 13:48 SP (Rec: 07/15/24 14:37 SP [id number]) OP-PT Subjective Patient Comments Patient Comments Niece Fauzia said pt was little sore after last tx, compliant with HEP with cues, pt doesn't recall. Zenobia said pt R>L bicep hurts and distal deltoid soreness at arrival today, maybe due to helped her out of shower yesterday, still sore. PT-OP-J Posture/Palpation/Skin Start: 06/20/24 07:26 Freq: Status: Active Protocol: Document 06/22/24 10:46 MB (Rec: 06/22/24 11:27 MB [id number]) Posture Evaluation Comments Posture Comments Standing posture with shoes on : head rests in right SB, mild increase in thoracic kyphosis , and right convexity and change to left convexity lower thoracic and lumbar spine and left iliac crest 1/2 higher than the right. Decreased cervical lordosis, increased forward head, mild Dowager's hump, anterior rounded shoulders, right shoulder higher than the left, right shoulder more forward/winged than the left and slightly elevated. PT-OP-K Range of Motion Start: 06/20/24 07:26 Freq: Status: Active Protocol: Document 06/22/24 10:46 MB (Rec: 06/22/24 11:27 MB [id number]) Cervical Spine Range of Motion Cervical Spine Active Testing Position Standing Flexion 42 Extension 30 Rotation Left 50 Rotation Right 50 Lateral Flexion Left 5 Lateral Flexion Right 10 Shoulder Goniometric Range of Motion Shoulder Left Shoulder ROM WFL No Testing Position Standing Flexion 120 Extension 56 Abduction 110 Comments Flexion in scaption plane and pain PT c/o pain with abduction as well Active left IR behind back to T6 In supine, passive ER in 90/90 to 45 deg and ER to 30 deg and painful Right Shoulder ROM WFL No Testing Position Standing Flexion 110 Extension 45 Abduction 100 Comments Flexion in scaption plane and pain Pt c/o pain with abduction as well Active right IR behind back to T12 Pt is right handed In supine, passive abduction to 60 deg only and painful and then ER to 30 deg and IR to 15 deg PT-OP-M Strength Start: 06/20/24 07:26 Freq: Status: Active Protocol: Document 06/22/24 10:46 MB (Rec: 06/22/24 11:27 MB [id number]) Shoulder Strength Shoulder Manual Muscle Testing Bilateral Comments Did not MMT shoulder given reduced range and pain Elbow/Forearm Strength Elbow and Forearm Manual Muscle Testing Left Flexion (C6) 5 Normal Extension (C7) 5 Normal Pronation 5 Normal Supination 5 Normal Right Flexion (C6) 5 Normal Extension (C7) 5 Normal Pronation 4 Good Supination 5 Normal PT-OP-Q Treatments Start: 06/20/24 07:26 Freq: Status: Active Protocol: Document 07/15/24 13:48 SP (Rec: 07/15/24 14:37 SP [id number]) Therapeutic Exercises Supine Exercises protraction Supine Exercise Name trialed in PT: serratus press- added to HEP /c HO Side bilateral Resistance AROM Equipment Used dowel Reps/Minutes 5 reps x2 sets (10 reps home) Comments no pain, cued slow motion, elbow straight shld ROM Supine Exercise Name In PT only: FF to 90> 120 deg with protraction arc Side bilateral Equipment Used dowel Reps/Minutes 5 reps total post manual Comments causes pain in front R shld > 120deg but pt not consistant pnfree rnge Sidelying Exercises ER Sidelying Exercise Name added to HEP /c HO Side bilateral Resistance AROM Reps/Minutes 8 reps to 90deg front neutral Comments good consistant response, cued hand to hip height Open book Sidelying Exercise Name trialed in PT- causes pain stopped Side bilateral Equipment Used Pillow doubled under head and pillow between legs Reps/Minutes 2 reps (1 long and 1 short level arm) Comments Cues to work in pain-free range and tactile cues scap glide Sitting Exercises scap retraction Sitting Exercise Name reviewed sitting today /c HO Side bilateral Reps/Minutes 10 x10 Comments cued slow gentle contraction and release- consistant no pain reported Standing Exercises wall slides Standing Exercise Name trialed FF wall slide for progression assessment Reps/Minutes 3 reps small range Comments feels L>R shld creaking and irritating- d/c for now Manual Therapy Treatment Consent Patient gave verbal consent for manual Yes treatment Other Other Manual Treatments Pt hooklying with head and legs supported on pillow/wedge : Positional release B pects, upper traps, bicep, deltoid, R >L GH PA and inferior glide; PROM BUE with slight distraction GH jt into FF and ABD painfree range. PT-OP-T Assessment and Plan Start: 06/20/24 07:26 Freq: Status: Active Protocol: Document 07/15/24 13:48 SP (Rec: 07/15/24 14:37 SP [id number]) Physical Therapy Assessment Goals 3 Impairment Evidence of imbalance Ecological Modeler Goal (LTG) Pt will perform WNLs on a standardized balance test such as TUG, Tinetti or Hopson to decrease fall risk. LTG Duration 8 weeks 2 Impairment Lack of HEP Ecological Modeler Goal (LTG) Pt will perform progressive HEP with cues including shoulder and thoracic ROM and flexibility, postural exercises, balance and strengthening to improve pain and function. LTG Duration 8 weeks 1 Impairment Limited and painful B shoulder ROM Ecological Modeler Goal (LTG) Pt will perform B active shoulder flexion and abduction to at least 150 deg to improve functional use of arms with dressing, bathing and reaching overhead. LTG Duration 8 weeks Assessment Summary Assessment Pt good tolerance for gentle manual with feedback provided. Ther ex focused on AROM painfree, little trial and found FF uncomfortable >120 deg supine and slight above 90deg standing and didn't stop painfree range when instructed so/discontinue. Good form and range painfree supine serratus press, seated scap retraction and side ER ROM. Pt did not tolerate open book today on R so DC for now. Pt and zenobia Cage good understanding performance HEP scap retraction, protraction and side ER, provided HOs for carryover home. Pt reports no pain end tx before left. Physical Therapy Plan Frequency and Duration Frequency of Treatment 2x/Week Duration of treatment (weeks) 8 Plan of Care Start Date 06/22/24 Plan of Care End Date 08/19/24 Therapeutic Interventions Therapeutic Interventions Balance Training,Canalithic Repositioning,Coordination Training,Gait Training,Home Exercise Program,Joint Mobilizations,Manual Therapy, Neuromuscular Re-education, Patient/Caregiver Education, Self-Care/Home Management, Sensory Integration,Soft Tissue Mobilization,Taping, Therapeutic Activities, Therapeutic Exercises Modalities Cold Pack/Ice Massage,Electric Stimulation,Hot Packs, Ultrasound Next Visit Focus/Plan Next Note Type Treatment Note Next Visit Plan Review if needed (Fauzia may say review not needed, ask niece) : Pelvic realignment exercies, protraction supine, retraction seated, can retry open book and supine flexion with cane, AAROM shoulders, con't gentle manual work for neck, shoulders and thoracic spine, can consider doorway isometrics with ball for shoulder, scapular retraction and chin tucks
--- NOTE | 2024-07-19 10:21 | PT.OTN ---
Current Diagnoses Hemarthrosis, left shoulder (07/19/24) Pain in right shoulder (07/19/24) Pain in left shoulder (07/19/24) Muscle weakness (generalized) (07/19/24) Physical Therapy Treatment Note PT-OP-A Visit Information Start: 06/20/24 07:26 Freq: Status: Active Protocol: Document 07/19/24 09:50 MB (Rec: 07/19/24 10:21 MB [id number]) Out-Patient Physical Therapy Visit Information Visit Information Visit Type Progress Note Visit Note Niece is Fauzia attends appt, gives feedback if pt doesn't respond with details she noted pt reports at home. 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 Her right shoulder has started to bother her more since she moved to [place] in April. She had worked out often in [place] and has worked out less since her fell and broke his hip. He is I. 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 Fauzia has been taking her to [employer] and she has been getting on the treadmill. Any band exercises for shoulders has increased pain. Pt denies headaches and neck pain. Pt is sleeping pretty well. Pt does not have any numbness or tingling in the arms. Fauzia reports that pt has lost a lot of weight, about 14 lb before she moved up to stay with niece. Fauzia reports that pt's stamina has decreased. Heart monitor has been ordered as her BP and HR have been jumping all over the place. Pt had one vertigo spell recently. Prior Treatments and Tests None for shoulders Treatment Goals Patient/Caregiver Goals To increase shoulder ROM and decrease pain PT-OP-C Subjective Start: 06/20/24 07:26 Freq: Status: Active Protocol: Document 07/19/24 09:50 MB (Rec: 07/19/24 10:21 MB [id number]) OP-PT Subjective Patient Comments Patient Comments Fauzia states that pt was sore after the last treatment. She is doing her exercises everyday. Fauzia called Dr. Garcia about an injection. Pt reports that both of her arms are sore. PT-OP-J Posture/Palpation/Skin Start: 06/20/24 07:26 Freq: Status: Active Protocol: Document 06/22/24 10:46 MB (Rec: 06/22/24 11:27 MB [id number]) Posture Evaluation Comments Posture Comments Standing posture with shoes on : head rests in right SB, mild increase in thoracic kyphosis , and right convexity and change to left convexity lower thoracic and lumbar spine and left iliac crest 1/2 higher than the right. Decreased cervical lordosis, increased forward head, mild Dowager's hump, anterior rounded shoulders, right shoulder higher than the left, right shoulder more forward/winged than the left and slightly elevated. PT-OP-K Range of Motion Start: 06/20/24 07:26 Freq: Status: Active Protocol: Document 06/22/24 10:46 MB (Rec: 06/22/24 11:27 MB [id number]) Cervical Spine Range of Motion Cervical Spine Active Testing Position Standing Flexion 42 Extension 30 Rotation Left 50 Rotation Right 50 Lateral Flexion Left 5 Lateral Flexion Right 10 Shoulder Goniometric Range of Motion Shoulder Left Shoulder ROM WFL No Testing Position Standing Flexion 120 Extension 56 Abduction 110 Comments Flexion in scaption plane and pain PT c/o pain with abduction as well Active left IR behind back to T6 In supine, passive ER in 90/90 to 45 deg and ER to 30 deg and painful Right Shoulder ROM WFL No Testing Position Standing Flexion 110 Extension 45 Abduction 100 Comments Flexion in scaption plane and pain Pt c/o pain with abduction as well Active right IR behind back to T12 Pt is right handed In supine, passive abduction to 60 deg only and painful and then ER to 30 deg and IR to 15 deg PT-OP-M Strength Start: 06/20/24 07:26 Freq: Status: Active Protocol: Document 06/22/24 10:46 MB (Rec: 06/22/24 11:27 MB [id number]) Shoulder Strength Shoulder Manual Muscle Testing Bilateral Comments Did not MMT shoulder given reduced range and pain Elbow/Forearm Strength Elbow and Forearm Manual Muscle Testing Left Flexion (C6) 5 Normal Extension (C7) 5 Normal Pronation 5 Normal Supination 5 Normal Right Flexion (C6) 5 Normal Extension (C7) 5 Normal Pronation 4 Good Supination 5 Normal PT-OP-Q Treatments Start: 06/20/24 07:26 Freq: Status: Active Protocol: Document 07/19/24 09:50 MB (Rec: 07/19/24 10:21 MB [id number]) Therapeutic Exercises Standing Exercises AROM shoulders Comments See findings under goals today , reduced range since eval Neuro Re-Education Treatment Balance Activities Hopson Comments See comments in goals today TUG Comments See comments in goals today Self-Care/Home Management Treatment Education Patient Education Body Mechanics,Fall Risk,Home Exercise Program,Pain Management,Posture,Safety Other Education Discussion with pt and Fauzia mas, about no progress with pain reducation or with AROM since starting PT and WNLs with Hopson balance testing and no further outpatient PT indicated at this time, recommend pain/clerk specialist consult, con't going to gym and with exercises, they verbalize understanding PT-OP-T Assessment and Plan Start: 06/20/24 07:26 Freq: Status: Active Protocol: Document 07/19/24 09:50 MB (Rec: 07/19/24 10:21 MB [id number]) Physical Therapy Assessment Goals 3 Impairment Evidence of imbalance Mcc Goal (LTG) Pt will perform WNLs on a standardized balance test such as TUG, Tinetti or Hopson to decrease fall risk. 07/19/24: TU sec and pt must be cued to sit back down and then performed a second time and pt performs in 11 sec ; Hopson/56 which is normal for pt's age LTG Duration 8 weeks 2 Impairment Lack of HEP Mcc Goal (LTG) Pt will perform progressive HEP with cues including shoulder and thoracic ROM and flexibility, postural exercises, balance and strengthening to improve pain and function. 07/19/24: Pt is performing HEP exercises at home. LTG Duration 8 weeks 1 Impairment Limited and painful B shoulder ROM Mcc Goal (LTG) Pt will perform B active shoulder flexion and abduction to at least 150 deg to improve functional use of arms with dressing, bathing and reaching overhead. 07/19/24: Standing AROM: flexion right 108 deg and left 105 deg; abduction right 84 deg and left 70 deg. These are much less range than on evaluation. LTG Duration 8 weeks Assessment Summary Assessment Pt has not progressed towards shoulder ROM goals since starting PT and she con't to report increased soreness/ discomfort after every therapy visit and no improvements in pain. Niece, Fauzia, states that she is performing her exercises. Pt's cognitive impairment makes progression challenging. Given no progress towards PT, will d/c PT at this time. Fauzia to follow-up with pain specialist in setting of possible frozen shoulder presentation with other spinal degenerative changes in 84 y/o female.
== END 2024-07-25 10:40 | disposition home or self-care (01) ==
LOC: PHYS 09:45
PROVIDERS: Family Provider Nurse Practitioner; PCP Nurse Practitioner; Referring Provider Nurse Practitioner; Visit Provider Nurse Practitioner
DX: M62.81 Muscle weakness (generalized) (principal); M25.511 Pain in right shoulder; M25.012 Hemarthrosis, left shoulder; M25.512 Pain in left shoulder
CPT/HCPCS: 97110; 97112; 97140; 97161; 97535

== ENCOUNTER → 2024-08-17 08:02 | Outpatient (CLI) | payer MEDICARE, SELFPAY ==
[2024-08-17 08:42] LABS: Add Manual Diff / Slide Review NO; Basophils Absolute Auto 0 /uL (0-100); Basophils Percent Auto 0.6 % (0-2); Eosinophils Absolute Auto 100 /uL (0-450); Eosinophils Percent Auto 2.2 % (2-4); Hematocrit 39.3 % (36-46); Hemoglobin 13.3 g/dL (12.0-16.0); Lymphocytes Absolute Auto 1100 /uL (1100-4500); Lymphocytes Percent Auto 28.8 % (25-40); Mean Corpuscular HGB Conc 33.7 % (30-36); Mean Corpuscular Hemoglobin 32.1 PG (26-34); Mean Corpuscular Volume 95.1 fL (80-100); Monocytes Absolute Auto 300 /uL (0-900); Monocytes Percent Auto 6.9 % (3-14); Neutrophils Absolute Auto 2300 /uL (1500-7000); Neutrophils Percent Auto 61.5 % (50-75); Platelet Count 219 X10^3/uL (150-400); Red Blood Cell Count 4.13 X10^6/uL (4.0-5.2); Red Cell Distribution Width 12.9 % (11.6-14.8); White Blood Cell Count 3.7 X10^3/uL (4.5-11.0)
[2024-08-17 08:59] LABS: Alanine Aminotransferase 31 IU/L (<35); Albumin 4.4 g/dL (3.5-5.0); Albumin Globulin Ratio 1.6 (1.0-2.8); Alkaline Phosphatase 61 U/L (38-126); Aspartate Aminotransferase 35 IU/L (14-36); BUN Creatinine Ratio 23.9 (6-22); Bilirubin Total 0.9 mg/dL (0.2-1.3); Blood Urea Nitrogen 16 mg/dL (7-17); Calcium 9.8 mg/dL (8.4-10.2); Carbon Dioxide 29 mmol/L (22-32); Chloride 97 mmol/L (98-107); Estimated Glomerular Filt Rate > 60 mL/min (>60); Globulin 2.7 g/dL (1.7-4.1); Glucose 96 mg/dL (80-110); HEMOLYSIS < 15 (0-50); Potassium 3.8 mmol/L (3.4-5.1); Sodium 133 mmol/L (137-145); Total Protein 7.1 g/dL (6.3-8.2)
[2024-08-17 09:16] LABS: Free T3, Triiodothyronine Free 3.19 pg/mL (2.77-5.27); Free T4, Direct Thyroxine 1.18 ng/dL (0.78-2.19)
[2024-08-17 09:30] LABS: Thyroid Stimulating Hormone 1.86 uIU/mL (0.47-4.68)
== END ==
PROVIDERS: Family Provider Nurse Practitioner; PCP Nurse Practitioner; Referring Provider Nurse Practitioner; Visit Provider Nurse Practitioner
DX: I49.9 Cardiac arrhythmia, unspecified (principal); R53.83 Other fatigue
CPT/HCPCS: 36415; 80053; 84439; 84443; 84481; 85025

== ENCOUNTER 2024-10-23 21:28 | Observation (INO) | payer MEDICARE, SELFPAY ==
[2024-10-23] VITALS (7 sets, daily range): BP systolic 128–141; BP diastolic 60–65; PULSE 56–69; RESP 13–26; TEMP 36.7; O2SAT 94–98; BMI 19.5
--- NOTE | 2024-10-23 21:45 | DI.RAD.S_ITS ---
PROCEDURE: XR FOREARM LT 2V INDICATIONS: fall, pain TECHNIQUE: 2 views of the forearm were acquired. COMPARISON: [facility], CR, XR CHEST 1V, 10/23/2024, 22:04. FINDINGS: Bones: There is a mildly displaced fracture of the distal radius. On these images, there is minimal intra-articular involvement seen. No definite associated fracture of the distal radius can be seen. Generalized degenerative changes are seen, which are worst involving the radial aspect of the carpus. Soft tissues: No suspicious soft tissue calcifications or masses. IMPRESSION: Distal radius fracture, with intra-articular involvement. Dictated by: Vito David M.D. on 10/23/2024 at 21:41 Approved by: Vito David M.D. on 10/23/2024 at 21:42
--- NOTE | 2024-10-23 21:45 | EKG_ITS ---
[address] [address] Test Date: 2024-10-23 Pat Name: Sophy Lucas Department: [facility] Room: Gender: Female Position Clerk: PETR SOUZA : 1940 Requested By: Order Number: [id number] Reading MD: Wenceslao Randall MD Measurements Intervals [place] Rate: 66 P: -56 KS: 144 QRS: 34 QRSD: 84 T: 74 QT: 420 QTc: 440 Interpretive Statements Unusual P axis, possible ectopic atrial rhythm Nonspecific T wave abnormality Electronically Signed On 10-24-2024 7:25:34 PDT by Wenceslao Randall MD
--- NOTE | 2024-10-23 21:45 | DI.RAD.S_ITS ---
PROCEDURE: XR CHEST 1V INDICATIONS: syncope, GLF TECHNIQUE: One view of the chest was acquired. COMPARISON: [facility], CR, XR FOREARM LT 2V, 10/23/2024, 22:04. FINDINGS: Surgical changes and devices: None. Lungs and pleura: Lungs are clear. No pleural effusions or pneumothorax. Mediastinum: The cardiac contours are within normal limits. The aorta demonstrates calcification and tortuosity. Bones and chest wall: No displaced rib fractures are seen. No suspicious bony lesions. Age-appropriate bony degenerative changes are seen. Particular involving both shoulders. Overlying soft tissues appear unremarkable. IMPRESSION: No displaced rib fracture or pneumothorax, seen on this single view study. Clear lungs, without infiltrates. Dictated by: Vito David M.D. on 10/23/2024 at 21:42 Approved by: Vito David M.D. on 10/23/2024 at 21:43
[2024-10-23 22:13] LABS: Add Manual Diff / Slide Review NO; Basophils Absolute Auto 0 /uL (0-100); Basophils Percent Auto 0.7 % (0-2); Eosinophils Absolute Auto 100 /uL (0-450); Eosinophils Percent Auto 1.9 % (2-4); Hematocrit 37.9 % (36-46); Hemoglobin 12.8 g/dL (12.0-16.0); Lymphocytes Absolute Auto 1300 /uL (1100-4500); Lymphocytes Percent Auto 25.2 % (25-40); Mean Corpuscular HGB Conc 33.8 % (30-36); Mean Corpuscular Hemoglobin 32.2 PG (26-34); Mean Corpuscular Volume 95.3 fL (80-100); Monocytes Absolute Auto 400 /uL (0-900); Monocytes Percent Auto 8.5 % (3-14); Neutrophils Absolute Auto 3400 /uL (1500-7000); Neutrophils Percent Auto 63.7 % (50-75); Platelet Count 191 X10^3/uL (150-400); Red Blood Cell Count 3.98 X10^6/uL (4.0-5.2); Red Cell Distribution Width 13.5 % (11.6-14.8); White Blood Cell Count 5.3 X10^3/uL (4.5-11.0)
[2024-10-23 22:28] LABS: BUN Creatinine Ratio 37.8 (6-22); Blood Urea Nitrogen 28 mg/dL (7-17); Calcium 9.4 mg/dL (8.4-10.2); Carbon Dioxide 27 mmol/L (22-32); Chloride 99 mmol/L (98-107); Estimated Glomerular Filt Rate > 60 mL/min (>60); Glucose 127 mg/dL (70-99); HEMOLYSIS < 15 (0-50); Potassium 3.4 mmol/L (3.4-5.1); Sodium 133 mmol/L (137-145)
[2024-10-23 22:40] LABS: Troponin I < 0.012 ng/mL (0.01-0.034)
--- NOTE | 2024-10-23 23:03 | ED_ITS ---
HPI - General Adult General Chief complaint: Syncope Stated complaint: Fall, L Arm Injury, Vomiting Time Seen by Provider: 10/23/24 21:48 Source: patient and family History of Present Illness HPI narrative: 84-year-old female with history of dementia, lives with daughter and same household, seemed to have altered speech, was leaning forward head on hands when she then fell backwards, did not strike her head, had complaint of left wrist pain after the ground level fall. No other areas of obvious injury. No focal weakness to face arm or leg. No focal numbness to face arm or leg. No history of previous strokes known. No drug or alcohol use known. No changes in medications, no new medications. No recent fevers or chills. No shortness of breath or chest pain. No diarrhea or vomiting. Related Data Home Medications ?Medication ?Instructions ?Recorded ?Confirmed memantine 10 mg tablet 10 mg PO QPM 05/05/24 olmesartan 5 mg tablet 5 mg PO DAILY 05/05/2410/24 rosuvastatin 5 mg tablet 5 mg PO DAILY 05/05/2410/24 sennosides 8.6 mg tablet (Senna 8.6 mg PO DAILY 10/24/24 Lax) donepezil 10 mg tablet (Aricept) 10 mg PO BEDTIME 10/0310/24/24 Allergies Allergy/AdvReac Type Severity Reaction Status Date / Time No Known Drug Allergies Allergy Unverified 10/23/24 21:34 Patient History Medical History (Updated 10/24/24 @ 07:11 by Chapo Stratton MD) Dementia HLD (hyperlipidemia) HTN (hypertension) History of constipation History of urinary retention Urinary tract infection History of hydronephrosis Social History marital status: number of children: 0 household members: family education level: college occupational status: previously employed 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 HEAD: Atraumatic. Normocephalic. EYES: Pupils equal round and reactive. Extraocular motions intact. No scleral icterus. No injection or drainage. ENT: Nose without bleeding, purulent drainage. Throat without erythema, tonsillar hypertrophy or exudate. Airway patent. NECK: Trachea midline. Non tender CARDIOVASCULAR: Regular rate and rhythm without murmurs, gallops, or rubs. RESPIRATORY: Clear to auscultation. Breath sounds equal bilaterally. No wheezes, rales, or rhonchi. GASTROINTESTINAL: Abdomen soft, non-tender, nondistended. EXTREMITIES: Tenderness to left distal wrist without gross deformity, no tenderness to proximal forearm elbow upper arm shoulder. No tenderness to left hand fingers. BACK: Nontender without deformity or crepitance. No flank tenderness. NEURO: AOx3. Motor functions grossly nonfocal SKIN: No rash or erythema of visible areas Initial Vital Signs Initial Vital Signs: Vital Signs Temperature 98.0 F 10/23/24 21:34 Pulse Rate 57 L 10/23/24 21:34 Respiratory Rate 15 10/23/24 21:34 Blood Pressure 128/60 10/23/24 21:34 Pulse Oximetry 97 10/23/24 21:34 Oxygen Delivery Method Room Air 10/23/24 21:34 Course Orders Ordered: ED Orders 10/24/24 09:00 Urinalysis and Microscopic Stat Urine Drug Screen, Rapid Stat Acetaminophen (Acetaminophen 325 Mg Tablet) 650 mg PO Q6H PRN PRN Reason: Fever/Mild Pain (1-3) Atorvastatin Calcium (Atorvastatin 20 Mg Tablet) 10 mg PO BEDTIME NELSON Donepezil HCl (Donepezil 5 Mg Tablet) 10 mg PO BEDTIME NELSON Ketorolac Tromethamine (Ketorolac 30 Mg/Ml Vial) 30 mg IV Q8H PRN PRN Reason: pain Stop: 10/29/24 04:03 Last Admin: 10/24/24 05:44 Dose: 30 mg Documented By: MS Memantine (Memantine Hcl 5 Mg Tablet) 10 mg PO QPM [facility] Naloxone HCl (Naloxone 0.4 Mg/Ml Vial) 0.2 mg IV Q2MIN PRN PRN Reason: Opiate Reversal Sennosides (Sennosides 8.6 Mg Tablet) 8.6 mg PO DAILY [facility] Last Admin: 10/24/24 09:00 Dose: Not Given Documented By: CLP Discontinued Medications Hydromorphone HCl (Hydromorphone 0.5 Mg Inj) 0.5 mg IV NOW ONE Stop: 10/24/24 00:12 Last Admin: 10/24/24 00:22 Dose: 0.5 mg Documented By: MICHAEL Vital Signs Vital signs: Vital Signs - 8 hr 10/23/24 21:34 10/23/24 21:52 10/23/24 21:52 Temperature 98.0 F Pulse Rate 57 L 68 Respiratory Rate 15 17 Blood Pressure 128/60 141/64 H Pulse Oximetry 97 97 Oxygen Delivery Method Room Air 10/23/24 22:00 10/23/24 22:00 10/23/24 22:30 Temperature Pulse Rate 69 56 L Respiratory Rate 21 20 Blood Pressure 141/64 H Pulse Oximetry 98 96 Oxygen Delivery Method 10/23/24 22:31 10/23/24 22:31 10/23/24 23:00 Temperature Pulse Rate 56 L 56 L Respiratory Rate 13 23 Blood Pressure 132/60 Pulse Oximetry 95 95 Oxygen Delivery Method 10/23/24 23:00 10/23/24 23:30 10/23/24 23:30 Temperature Pulse Rate 57 L Respiratory Rate 26 H Blood Pressure 141/65 H 140/63 Pulse Oximetry 94 Oxygen Delivery Method 10/24/24 00:00 10/24/24 00:00 Temperature Pulse Rate 58 L Respiratory Rate 19 Blood Pressure 143/63 H Pulse Oximetry 96 Oxygen Delivery Method Medical Decision Making Lab Data Lab results reviewed: Yes I reviewed the patient's lab results. Lab results narrative: White blood cell count 5300, hemoglobin 12.8, platelets 191,000. Glucose 127. BUN 28 with creatinine 0.74. Serum CO2 27. Sodium 133, potassium 3.4. 10/23/24 22:00 10/23/24 22:00 Labs: Lab Results 10/23/24 Range/Units 22:00 WBC 5.3 (4.5-11.0) X10^3/uL RBC 3.98 L (4.0-5.2) X10^6/uL Hgb 12.8 (12.0-16.0) g/dL Hct 37.9 (36-46) % MCV 95.3 (80-100) fL MCH 32.2 (26-34) PG MCHC 33.8 (30-36) % RDW 13.5 (11.6-14.8) % Plt Count 191 (150-400) X10^3/uL Neut % (Auto) 63.7 (50-75) % Lymph % (Auto) 25.2 (25-40) % Norman % (Auto) 8.5 (3-14) % Eos % (Auto) 1.9 L (2-4) % Baso % (Auto) 0.7 (0-2) % Neut # (Auto) 3400 (5699-3747) /uL Lymph # (Auto) 1300 (2811-4858) /uL Norman # (Auto) 400 (0-900) /uL Eos # (Auto) 100 (0-450) /uL Baso # (Auto) 0 (0-100) /uL Sodium 133 L (137-145) mmol/L Potassium 3.4 (3.4-5.1) mmol/L Chloride 99 (98-107) mmol/L Carbon Dioxide 27 (22-32) mmol/L BUN 28 H (7-17) mg/dL Creatinine 0.74 (0.52-1.04) mg/dL Estimated GFR > 60 (>60) mL/min BUN/Creatinine Ratio 37.8 H (6-22) Glucose 127 H (70-99) mg/dL Calcium 9.4 (8.4-10.2) mg/dL Magnesium 2.0 (1.6-2.3) mg/dL Troponin I < 0.012 (0.01-0.034) ng/mL Ethyl Alcohol < 10 (<10) mg/dL Point of Care Testing Glucose POC 127 Point of care testing: Point of Care Testing Glucose POC 127 Imaging Data Chest x-ray: Radiologist's Impression: [address] [address] XRay Report Signed Patient: Sophy Lucas MR#: [id number] : 1940 Acct:[id number] Age/Sex: 84 / F Date of Service: 10/23/24 Loc: ED Accession Number: [id number] Procedure: XR chest 1V Ordering Provider: Dm Bedolla MD PROCEDURE: XR CHEST 1V INDICATIONS: syncope, GLF TECHNIQUE: One view of the chest was acquired. COMPARISON: [facility], CR, XR FOREARM LT 2V, 10/23/2024, 22:04. FINDINGS: Surgical changes and devices: None. Lungs and pleura: Lungs are clear. No pleural effusions or pneumothorax. Mediastinum: The cardiac contours are within normal limits. The aorta demonstrates calcification and tortuosity. Bones and chest wall: No displaced rib fractures are seen. No suspicious bony lesions. Age-appropriate bony degenerative changes are seen. Particular involving both shoulders. Overlying soft tissues appear unremarkable. IMPRESSION: No displaced rib fracture or pneumothorax, seen on this single view study. Clear lungs, without infiltrates. Dictated by: Vito David M.D. on 10/23/2024 at 21:42 Approved by: Vito David M.D. on 10/23/2024 at 21:43 Extremity x-ray #1: Radiologist's Impression: [address] [address] XRay Report Signed Patient: Sophy Lucas MR#: [id number] : 1940 Acct:[id number] Age/Sex: 84 / F Date of Service: 10/23/24 Loc: ED Accession Number: [id number] Procedure: XR forearm LT 2V Ordering Provider: Dm Bedolla MD PROCEDURE: XR FOREARM LT 2V INDICATIONS: fall, pain TECHNIQUE: 2 views of the forearm were acquired. COMPARISON: [facility], CR, XR CHEST 1V, 10/23/2024, 22:04. FINDINGS: Bones: There is a mildly displaced fracture of the distal radius. On these images, there is minimal intra-articular involvement seen. No definite associated fracture of the distal radius can be seen. Generalized degenerative changes are seen, which are worst involving the radial aspect of the carpus. Soft tissues: No suspicious soft tissue calcifications or masses. IMPRESSION: Distal radius fracture, with intra-articular involvement. Dictated by: Vito David M.D. on 10/23/2024 at 21:41 Approved by: Vito David M.D. on 10/23/2024 at 21:42 CT scan - head: Radiologist's Impression: [address] [address] [address] Scan Report Signed Patient: Sophy Lucas MR#: [id number] : 1940 Acct:[id number] Age/Sex: 84 / F Date of Service: 10/23/24 Loc: ED Accession Number: [id number] Procedure: CT head/brain wo con Ordering Provider: Dm Bedolla MD PROCEDURE: CT HEAD/BRAIN WO CON INDICATIONS: altered speech, then fall TECHNIQUE: Noncontrast 4.5 mm thick angled axial sections acquired from the foramen magnum to the vertex, with coronal and sagittal reformats. For radiation dose reduction, the following was used: automated exposure control, adjustment of mA and/or kV according to patient size. COMPARISON: [facility], CT, CT ANGIO HEAD AND NECK, 10/24/2024, 0:33. [facility], CR, XR CHEST 1V, 10/23/2024, 22:04. [facility], CR, XR FOREARM LT 2V, 10/23/2024, 22:04. FINDINGS: Image quality: Diagnostic. CSF spaces: Basal cisterns are patent. No extra-axial fluid collections. The ventricles are symmetric in size and shape. Brain: No intracranial bleeds or mass effect. There is cerebral volume loss, with resultant ventricular and sulcal prominence. There are periventricular and deep white matter chronic small vessel ischemic changes. There is intracranial internal carotid artery atherosclerosis. Skull and face: Calvarium and visualized facial bones appear intact, without suspicious lesions. Sinuses: Visualized sinuses and mastoids are clear. IMPRESSION: No acute intracranial hemorrhage is seen. No acute intracranial pathology. If there is strong clinical suspicion for an acute stroke, please consider a brain MRI for further evaluation, as it is more sensitive (assuming that there is no contraindication to MRI). Dictated by: Vito David M.D. on 10/24/2024 at 0:20 Approved by: Vito David M.D. on 10/24/2024 at 0:21 CTA - brain/neck: Radiologist's Impression: [address] [address] [address] Scan Report Signed Patient: Sophy Lucas MR#: [id number] : 1940 Acct:[id number] Age/Sex: 84 / F Date of Service: 10/23/24 Loc: ED Accession Number: [id number] Procedure: CT angio head and neck Ordering Provider: Dm Bedolla MD PROCEDURE: CT ANGIO HEAD AND NECK INDICATIONS: altered speech, then fall today TECHNIQUE: After the administration of intravenous contrast, 1 mm thick sections acquired from the aortic arch through the [place]. 3-dimensional gzjwcnm-gyqwrwgis-bxkqpdtbdd (MIP) and/or volume rendering reformats were acquired of the central intracranial vasculature and neck separately. For radiation dose reduction, the following was used: automated exposure control, adjustment of mA and/or kV according to patient size. COMPARISON: [facility], CT, CT HEAD/BRAIN WO CON, 10/24/2024, 0:33. [facility], CR, XR CHEST 1V, 10/23/2024, 22:04. [facility], CR, XR FOREARM LT 2V, 10/23/2024, 22:04. FINDINGS: Image quality: Limited by bolus timing, with venous contamination. There is streak artifact seen through the level of the shoulders. Cerebral CT Angiogram: Internal carotid arteries: No acute findings. Intracranial ICA are patent with no significant stenosis. No occlusion. No aneurysm. Anterior cerebral arteries: Unremarkable. No significant stenosis. No occlusion. No aneurysm. Middle cerebral arteries: Unremarkable. No significant stenosis. No occlusion. No aneurysm. Posterior cerebral arteries: Unremarkable. No significant stenosis. No occlusion. No aneurysm. Basilar artery: Unremarkable. No significant stenosis. No occlusion. No aneurysm. Vertebral arteries: Unremarkable as visualized. Dural venous sinuses: Unremarkable given phase of enhancement. Other: Arterial phase appearance of the brain parenchyma is unremarkable. Neck CT Angiogram: Internal carotid arteries: Unremarkable. No significant stenosis. No dissection or occlusion. Common carotid arteries: Unremarkable. No significant stenosis. No dissection or occlusion. External carotid arteries: Unremarkable. No occlusion. Vertebral arteries: Unremarkable. No significant stenosis. No dissection or occlusion. Aortic Arch and Mediastinum: Partially visualized aortic arch unremarkable without evidence of aneurysm. Origins of the great vessels unremarkable. Other: Arterial phase soft tissues of the neck and chest are unremarkable. Cervical spine degenerative change can be seen, which is worst inferiorly. Multiple levels of facet hypertrophy can be seen, right worse than left. 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 IMPRESSION: No significant intracranial arterial abnormality is seen. No significant abnormality is seen within the arteries of the neck. Additional findings: Torus tubarius Moderate cervical spine degenerative change Any quantitative measurements of stenosis were performed using NASCET criteria. Dictated by: Vito David M.D. on 10/24/2024 at 0:21 Approved by: Vito David M.D. on 10/24/2024 at 0:24 ECG Data Attestation: I personally reviewed and interpreted this ECG as follows: Interpretation: 2207, sinus rhythm with rate 66, no obvious ST segment elevation or depression changes. W[place] 144, QRS 84, QTC 440. [facility] Narrative Medical decision making narrative: 84-year-old female had audible change in her speech pattern per adugher, then seemed to fall backwards, witnessed by daughter, with post-fall left wrist pain. No LOC, no headache, no focal neuro findings after the fall. Speech clear. X- ray shows intra-articular left distal radius fracture, splinted in sugar-tong, sling. Resolved speech issue, and syncopal episode. EKG and troponin negative. CXR negative. CT head and CT angiogram head and neck vessels pending. Serum screening labs unremarkable. CT head, no acute changes. See radiology report. CT angiogram head and neck vessels. No significant narrowing or thrombosis. See radiology report. 0130, Case discussed with hospitalist Dr. Stratton who accepts patient for admission for further workup syncope and resolve stroke-like symptoms. Discharge Plan Departure Patient Disposition: Admitted as Observation Clinical Impression: Stroke-like symptoms, Speech problem, Episode of syncope, Fracture of left distal radius Admit Date/Time: 10/24/24 01:33 Admit Provider: Chapo Zheng
--- NOTE | 2024-10-23 23:29 | DI.CT.S_ITS ---
PROCEDURE: CT HEAD/BRAIN WO CON INDICATIONS: altered speech, then fall TECHNIQUE: Noncontrast 4.5 mm thick angled axial sections acquired from the foramen magnum to the vertex, with coronal and sagittal reformats. For radiation dose reduction, the following was used: automated exposure control, adjustment of mA and/or kV according to patient size. COMPARISON: [facility], CT, CT ANGIO HEAD AND NECK, 10/24/2024, 0:33. [facility], CR, XR CHEST 1V, 10/23/2024, 22:04. [facility], CR, XR FOREARM LT 2V, 10/23/2024, 22:04. FINDINGS: Image quality: Diagnostic. CSF spaces: Basal cisterns are patent. No extra-axial fluid collections. The ventricles are symmetric in size and shape. Brain: No intracranial bleeds or mass effect. There is cerebral volume loss, with resultant ventricular and sulcal prominence. There are periventricular and deep white matter chronic small vessel ischemic changes. There is intracranial internal carotid artery atherosclerosis. Skull and face: Calvarium and visualized facial bones appear intact, without suspicious lesions. Sinuses: Visualized sinuses and mastoids are clear. IMPRESSION: No acute intracranial hemorrhage is seen. No acute intracranial pathology. If there is strong clinical suspicion for an acute stroke, please consider a brain MRI for further evaluation, as it is more sensitive (assuming that there is no contraindication to MRI). Dictated by: Vito David M.D. on 10/24/2024 at 0:20 Approved by: Vito David M.D. on 10/24/2024 at 0:21
--- NOTE | 2024-10-23 23:30 | DI.CT.S_ITS ---
PROCEDURE: CT ANGIO HEAD AND NECK INDICATIONS: altered speech, then fall today TECHNIQUE: After the administration of intravenous contrast, 1 mm thick sections acquired from the aortic arch through the [place] of Toribio. 3-dimensional kjbfrfg-krqkoehwa-xsldanpgrs (MIP) and/or volume rendering reformats were acquired of the central intracranial vasculature and neck separately. For radiation dose reduction, the following was used: automated exposure control, adjustment of mA and/or kV according to patient size. COMPARISON: [facility], CT, CT HEAD/BRAIN WO CON, 10/24/2024, 0:33. [facility], CR, XR CHEST 1V, 10/23/2024, 22:04. [facility], CR, XR FOREARM LT 2V, 10/23/2024, 22:04. FINDINGS: Image quality: Limited by bolus timing, with venous contamination. There is streak artifact seen through the level of the shoulders. Cerebral CT Angiogram: Internal carotid arteries: No acute findings. Intracranial ICA are patent with no significant stenosis. No occlusion. No aneurysm. Anterior cerebral arteries: Unremarkable. No significant stenosis. No occlusion. No aneurysm. Middle cerebral arteries: Unremarkable. No significant stenosis. No occlusion. No aneurysm. Posterior cerebral arteries: Unremarkable. No significant stenosis. No occlusion. No aneurysm. Basilar artery: Unremarkable. No significant stenosis. No occlusion. No aneurysm. Vertebral arteries: Unremarkable as visualized. Dural venous sinuses: Unremarkable given phase of enhancement. Other: Arterial phase appearance of the brain parenchyma is unremarkable. Neck CT Angiogram: Internal carotid arteries: Unremarkable. No significant stenosis. No dissection or occlusion. Common carotid arteries: Unremarkable. No significant stenosis. No dissection or occlusion. External carotid arteries: Unremarkable. No occlusion. Vertebral arteries: Unremarkable. No significant stenosis. No dissection or occlusion. Aortic Arch and Mediastinum: Partially visualized aortic arch unremarkable without evidence of aneurysm. Origins of the great vessels unremarkable. Other: Arterial phase soft tissues of the neck and chest are unremarkable. Cervical spine degenerative change can be seen, which is worst inferiorly. Multiple levels of facet hypertrophy can be seen, right worse than left. 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 IMPRESSION: No significant intracranial arterial abnormality is seen. No significant abnormality is seen within the arteries of the neck. Additional findings: Torus tubarius Moderate cervical spine degenerative change Any quantitative measurements of stenosis were performed using NASCET criteria. Dictated by: Vito David M.D. on 10/24/2024 at 0:21 Approved by: Vito David M.D. on 10/24/2024 at 0:24
[2024-10-23 23:45] LABS: Ethanol (ETOH) < 10 mg/dL (<10)
[2024-10-24] VITALS (9 sets, daily range): BP systolic 140–156; BP diastolic 63–73; PULSE 57–71; RESP 15–25; TEMP 36.2–36.6; O2SAT 92–99; BMI 19.5
[2024-10-24] MEDS: HYDROMORPHONE 0.5 MG INJ IV (00:22)
--- NOTE | 2024-10-24 01:57 | DI.ECHO.S_ITS ---
[facility] : : [address] : : [place] : : [id number] : : Phone: [phone] Echocardiogram Report + :Name: CRISS BAI Study Date: 10/24/2024 Height: 67 in : :[facility] ReadingLocation: Weight: 126 lb : : Gender: Female BSA: 1.7 m2 : :: 1940 Age: 84 yrs BP: 154/65 mmHg: :Reason For Study: SUSPECTED STROKE : :Ordering Physician: FATEMEH : :ESPINOZA MODI Performed By: Irasema Lawson : :Referring: ESPINOZA MORGAN : + Interpretation Summary Normal left ventricle size with ejection fraction 45-50%. There is inferior wall mild hypokinesis. There is posterolateral wall mild hypokinesis. The left atrium is mildly dilated. Mild mitral annular calcification. Moderate mitral regurgitation. Procedure: A two-dimensional transthoracic echocardiogram with color flow and Doppler was performed. The study quality was technically adequate. There is no prior echocardiogram noted for this patient. The patient had occasional PVCs during the exam. The heart rate ranged between 62-74 bpm during the study. Left Ventricle: The left ventricle is normal in size and wall thickness. The ejection fraction is estimated to be 45-50%. There is inferior wall mild hypokinesis. There is posterolateral wall mild hypokinesis. There are no other obvious focal wall motion abnormalities. Diastolic parameters suggest a relaxation abnormality of the left ventricle, consistent with probable normal filling pressures. Right Ventricle: The right ventricle is normal in size and function. Atria: The left atrium is mildly dilated. The right atrium is normal in size. There is no Doppler evidence for an interatrial shunt. Mitral Valve: The mitral valve leaflets appear mildly thickened, but open well. There is mild mitral annular calcification. There is moderate mitral regurgitation. Aortic Valve: The aortic valve is not well visualized. There is no aortic valve stenosis. No aortic regurgitation is present. Tricuspid Valve: The tricuspid valve leaflets are thin and pliable. There is trace tricuspid regurgitation. Pulmonary artery pressures cannot be estimated because of the lack of a measurable TR jet velocity but the IVC suggests a CVP of around 3 mmHg. Pulmonic Valve: The pulmonic valve is not well visualized. Great Vessels: The aortic root is not well visualized. The ascending aorta could not be visualized. The IVC is of normal diameter and collapses greater than 50% with a sniff. This suggests a low right atrial pressure of 3 mm Hg. Pericardium/ Pleura There is no pericardial effusion. There is no pleural effusion. MMode/2D Measurements & Calculations LVIDd: 3.7 cm LVOT diam: 2.1 cm LVIDs: 3.1 cm Ao Arch Diam (Prox Trans): 2.8 cm FS: 16.0 % IVSd: 0.95 cm LVPWd: 0.66 cm LV valdovinos. diameter/BSA (cm/m^2): 2.2 LV sys. diameter/BSA (cm/m^2): 1.9 LA A2 area: 17.4 cm2 RA long axis: 4.4 cm LA A4 area: 19.0 cm2 RA area: 12.7 cm2 LA length (vol): 4.7 cm RA vol: 31.7 ml LA vol: 59.3 ml RA : 19.1 ml/m2 LA vol index: 35.7 ml/m2 IVC diam: 2.0 cm RVD1 (basal): 2.9 cm RVD2 (mid): 2.7 cm TAPSE: 1.9 cm Doppler Measurements & Calculations Ao V2 max: 106.6 cm/sec LVOT Max Edwar: 89.5 cm/sec Ao V2 mean: 66.3 cm/sec LV V1 max P.2 mmHg Ao max P.5 mmHg LV V1 VTI: 20.1 cm Ao mean P.1 mmHg ELISABETH(I,D): 3.1 cm2 Ao V2 VTI: 22.3 cm ELISABETH(V,D): 2.9 cm2 sev ratio: 0.90 ELISABETH indexed to BSA (cm^2/m^2): 1.9 MV E max edwar: 54.2 cm/sec SV(LVOT): 70.0 ml MV A max edwar: 85.6 cm/sec MV E/A: 0.63 Med Peak E' Edwar: 7.9 cm/sec E/E' med: 6.9 Lat Peak E' Edwar: 7.4 cm/sec E/E' lat: 7.3 E/e' average: 7.1 MV dec time: 0.21 sec Electronically signed by: Carole Goodwin on Reading Physician:10/24/2024 11:59 AM
--- NOTE | 2024-10-24 02:00 | PM.HP.1 ---
History of Present Illness History of Present Illness Chief complaint: Fall, L Arm Injury, Vomiting Narrative: 84 y/o with PMH of HTN, dementia, HLD, sustained syncopal episode at home and fell injuring left arm. In the ED suspected for stroke as her daughter reported on slurred speech before the fall. Initial workup reassuring apart from distal radial fracture. Placed in observation with suspected stroke. 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 Smoking Status: Never smoker alcohol intake: current substance use type: does not use caffeine: Yes Meds Home Medications and Allergies Home Medications ?Medication ?Instructions ?Recorded ?Confirmed ?Type memantine 10 mg tablet 10 mg PO QPM 05/05/24 10/24/24 History olmesartan 5 mg tablet 5 mg PO DAILY 05/05/24 10/24/24 History rosuvastatin 5 mg tablet 5 mg PO DAILY 05/05/24 10/24/24 History sennosides 8.6 mg tablet (Senna 8.6 mg PO DAILY 05/05/24 10/24/24 History Lax) donepezil 10 mg tablet (Aricept) 10 mg PO BEDTIME 10/24/24 10/24/24 History Allergies Allergy/AdvReac Type Severity Reaction Status Date / Time No Known Drug Allergies Allergy Unverified 10/23/24 21:34 Review of Systems Review of Systems Narrative: General - Neuro - CVS - RSD - UG - GI - Exam Vital Signs (past 8 hours): - 10/23/24 21:34 10/23/24 21:52 10/23/24 21:52 Temperature 98.0 F Pulse Rate 57 L 68 Respiratory Rate 15 17 Blood Pressure 128/60 141/64 H Pulse Oximetry 97 97 Oxygen Delivery Method Room Air 10/23/24 22:00 10/23/24 22:00 10/23/24 22:30 Temperature Pulse Rate 69 56 L Respiratory Rate 21 20 Blood Pressure 141/64 H Pulse Oximetry 98 96 Oxygen Delivery Method 10/23/24 22:31 10/23/24 22:31 10/23/24 23:00 Temperature Pulse Rate 56 L 56 L Respiratory Rate 13 23 Blood Pressure 132/60 Pulse Oximetry 95 95 Oxygen Delivery Method 10/23/24 23:00 10/23/24 23:30 10/23/24 23:30 Temperature Pulse Rate 57 L Respiratory Rate 26 H Blood Pressure 141/65 H 140/63 Pulse Oximetry 94 Oxygen Delivery Method 10/24/24 00:00 10/24/24 00:00 Temperature Pulse Rate 58 L Respiratory Rate 19 Blood Pressure 143/63 H Pulse Oximetry 96 Oxygen Delivery Method Oxygen Delivery Method Room Air Narrative Exam Narrative: General - in no distress HEENT - atraumatic Neuro - cognitive deficits, memory loss, w/o focal deficits CVS - RRR RS - normal respiratory effort GI - not distended Objective ECG Impression: NSR 66 Imaging Chest x-ray: Radiologist's impression: No displaced rib fracture or pneumothorax, seen on this single view study. Clear lungs, without infiltrates. CTA head and neck: Radiologist's impression: No significant intracranial arterial abnormality is seen. No significant abnormality is seen within the arteries of the neck. CT scan - head: Radiologist's impression: o acute intracranial hemorrhage is seen. No acute intracranial pathology. xray forearm: Radiologist's impression: Distal radius fracture, with intra-articular involvement. Labs 10/23/24 22:00 10/23/24 22:00 Labs: Laboratory Results - last 24 hr 10/23/24 22:00 WBC 5.3 RBC 3.98 L Hgb 12.8 Hct 37.9 MCV 95.3 MCH 32.2 MCHC 33.8 RDW 13.5 Plt Count 191 Neut % (Auto) 63.7 Lymph % (Auto) 25.2 [place] % (Auto) 8.5 Eos % (Auto) 1.9 L Baso % (Auto) 0.7 Neut # (Auto) 3400 Lymph # (Auto) 1300 [place] # (Auto) 400 Eos # (Auto) 100 Baso # (Auto) 0 Sodium 133 L Potassium 3.4 Chloride 99 Carbon Dioxide 27 BUN 28 H Creatinine 0.74 Estimated GFR > 60 BUN/Creatinine Ratio 37.8 H Glucose 127 H Calcium 9.4 Magnesium 2.0 Troponin I < 0.012 Ethyl Alcohol < 10 Assessment & Plan Assessment and plan (1) Episode of syncope: Status: Acute (2) Stroke-like symptoms: Status: Acute (3) Fracture of left distal radius: Status: Acute (4) HTN (hypertension): Status: Acute (5) HLD (hyperlipidemia): Status: Acute (6) Dementia: Status: Acute Assessment & Plan narrative: Syncope - placed in observation on telemetry - echocardiogram, MRI pending - statin - PT, OT assessment - lives with daughter Dementia - Aricept - Namenda HTN - home olmesartan held DVT prophylaxis - SCDs Patient consented to telemedicine, audio-video encounter with RN assisting during the exam. Patient located at [place], [place], provider located in [place]. Time-Based Coding :: [TOTAL MINUTES] spent with patient and on the chart (including review of chart, obtaining history, exam, reviewing outside data, placing orders, documenting exam and treatment plan, and counseling patient) on [DATE].
[2024-10-24 02:59] LABS: Troponin I < 0.012 ng/mL (0.01-0.034)
--- NOTE | 2024-10-24 03:45 | PC.NURSE ---
According to patient's niece, she take tramadol not sure about the dose.
[2024-10-24] MEDS: KETOROLAC 30 MG/ML VIAL IV (05:44)
[2024-10-24 06:51] LABS: Hemoglobin A1C% w Est Avg Glu 5.7 % (4.0-6.0)
[2024-10-24 06:54] LABS: Cholesterol 159 mg/dL (140-199); HDL Cholesterol 66 mg/dL (40-60); LDL Cholesterol Calculated 85 mg/dL (<100); Triglycerides 38 mg/dL (35-150)
--- NOTE | 2024-10-24 09:54 | DI.MRI.S_ITS ---
PROCEDURE: MR HEAD/BRAIN WO CON INDICATIONS: suspected stroke TECHNIQUE: Noncontrast axial T1 spin echo, axial T2 fast spin echo, sagittal and axial FLAIR, coronal T2 fast spin echo, axial gradient echo, axial diffusion and ADC through the brain. COMPARISON: None. FINDINGS: CSF Spaces: Basal cisterns are patent. No extra-axial fluid collections. Ventricles are normal in size and shape. Brain: No intracranial masses or hemorrhage. [place]/white matter interface is normal. Brainstem appears normal. Diffusion-weighted sequence is unremarkable without evidence of acute infarct. Normal intravascular flow voids are present. Moderate atrophy and white matter chronic ischemic change. Bilateral intraocular lens replacements noted. Skull and face: Calvarium has normal marrow signal. Orbits appear normal. Sinuses: Sinuses and mastoids are clear. IMPRESSION: Atrophy and chronic ischemic change without acute infarct, hemorrhage or mass lesion. Approved by: Eloy Garsia M.D. on 10/24/2024 at 10:18
[2024-10-24 11:04] LABS: Appearance Urine UA CLEAR; Bilirubin Urine UA NEGATIVE (NEGATIVE); Color Urine UA YELLOW; Glucose Urine UA NEGATIVE (Negative); Ketones Urine UA NEGATIVE (NEGATIVE); Leukocyte Esterase Urine UA NEGATIVE (NEGATIVE); Nitrite Urine UA NEGATIVE (Negative); Occult Blood Urine UA NEGATIVE (Negative); Protein Urine UA NEGATIVE (Negative); Specific Gravity Urine UA 1.015 (1.000-1.035); Urobilinogen Urine UA 0.2 E.U./dL (0.2)
[2024-10-24 11:08] LABS: UR Morphine/Opiate cutoff 300 Negative (Negative); Ur Creatinine Normal (Normal); Ur Specific Gravity Normal (Normal); Urine Amphetamines Negative (Negative); Urine Barbiturates Negative (Negative); Urine Benzodiazepines Negative (Negative); Urine Cocaine Negative (Negative); Urine MDMA Negative (Negative); Urine Methadone Negative (Negative); Urine Methamphetamines Negative (Negative); Urine Oxycodone Negative (Negative); Urine Phencyclidine Negative (Negative); Urine Tetrahydrocannabinol Negative (Negative); Urine Tricyclic Antidepressant Negative (Negative); Urine pH Normal (Normal)
[2024-10-24 11:11] LABS: Bacteria Urine Occasional (0-1); Culture Indicated Urine Cult Not Indicated; RBC Urine 1-5/HPF (0-5/HPF); Squamous Epithelial Cell Urine 1-5 /HPF (0-5/HPF); Urine Volume 10mL (spun); WBC Urine 1-5/HPF (0-5/HPF)
--- NOTE | 2024-10-24 12:29 | PT.IIE ---
Current Diagnoses Hyperlipidemia, unspecified (10/24/24) Unspecified dementia, unspecified severity, without behavioral disturbance, psychotic disturbance, mood disturbance, and anxiety (10/24/24) Essential (primary) hypertension (10/24/24) Unspecified symptoms and signs involving the nervous system (10/24/24) Syncope and collapse (10/24/24) Unspecified fracture of the lower end of left radius, initial encounter for closed fracture (10/24/24) Medical History (Last Updated 10/24/24 @ 07:11 by Chapo Stratton MD) Dementia History of constipation History of hydronephrosis History of urinary retention HLD (hyperlipidemia) HTN (hypertension) Urinary tract infection Physical Therapy Inpatient Evaluation/Re-Eval M1 PT/OT-IP Prior Functional Status Start: 10/24/24 12:10 Freq: NEEDED Status: Active Protocol: Document 10/24/24 12:12 KJ (Rec: 10/24/24 12:28 KJ Desktop) Medical Review Prior Functional Status Medical History Yes Reviewed Mobility and Gait Pt reports ambulating indep in mobility w/out AD Activities of Daily Indep self care. Niece prepares meals and cleanas Living and IADL's Social History Household Members family Living Arrangements House Number of Floors ( One Floor Floors) Number of Stairs To 0 Enter/Railing? Additional Social Pt recently moved to [facility] to live History Comment near her brother and niece. Her recently . M2 PT-IP Current Condition Start: 10/24/24 12:10 Freq: NEEDED Status: Active Protocol: Document 10/24/24 12:12 KJ (Rec: 10/24/24 12:28 KJ Desktop) Physical Therapy Current Condition Current Condition Evaluation Date 10/24/24 Treatment Diagnosis Unsteady ambulation, falls Onset Date 06/25/24 M3 PT-IP Subjective Start: 10/24/24 12:10 Freq: NEEDED Status: Active Protocol: Document 10/24/24 12:12 KJ (Rec: 10/24/24 12:28 KJ Desktop) Subjective Physical Therapy Visit Type Type Initial Evaluation Visit Start Time 11:32 Visit Stop Time 12:05 Physical Therapy Visit Comments Patient Goals To get better and get home. Therapy Pain Assessment Pain When Pain Assessed At Rest M4 PT-IP Mobility and Gait Start: 10/24/24 12:10 Freq: NEEDED Status: Active Protocol: Document 10/24/24 12:12 KJ (Rec: 10/24/24 12:28 KJ Desktop) PT-Bed Mobility Assessment Rolling Level of Assist Independent Supine to Sit Supine to Sit Independent PT-Transfer Assessment Sit to and From Stand Sit to and from Contact Guard Assistance Stand Equipment Transfer Assistive None Device Transfers Transfer Destination Chair Transfer Technique Stand Step Pivot Transfer Ability Level of Assist Contact Guard Assistance Comments Mobility Comments Reports mild dizziness when up. Gait Assessment Gait Gait Assistance Contact Guard Assist Required: Distance (Feet) 5 Assistive Devices Assistive Device Gait Belt Gait Deviations General Gait Pattern Decreased Stride Length Factors Limiting Gait Function Factors Limiting Difficulty Following Directions,Poor Balance,Poor Gait Function Safety Awareness PT-Balance Assessment Sitting Balance and Reactions Static Sitting Good Balance Ability Dynamic Sitting Good Balance Ability Standing Balance and Reactions Static Standing Fair Balance Ability Dynamic Standing Fair Balance Ability M5 PT-IP Objective Assessments Start: 10/24/24 12:10 Freq: NEEDED Status: Active Protocol: Document 10/24/24 12:12 KJ (Rec: 10/24/24 12:28 KJ Desktop) Orientation Orientation/Cognition Level of Alertness Confusional State Orientation Name,Birthday Language Function No Deficits Noted Ability Safety Awareness Decreased Safety Awareness Memory Description Short Term Impaired Gross Range of Motion Upper Extremity ROM Assessment Bilaterally Impaired Impairments Decreased shoulder AROM Lower Extremity ROM Assessment Within Functional Limits Strength Upper Extremity Strength Assessment Within Functional Limits Shoulder within AROM Lower Extremity Strength Assessment Within Functional Limits Comments Strength Comments bilat knee ext and ankle dorsiflex WNL M6 PT-IP Treatment Start: 10/24/24 12:10 Freq: NEEDED Status: Active Protocol: Document 10/24/24 12:12 KJ (Rec: 10/24/24 12:28 KJ Desktop) Physical Therapy Treatment Exercises Exercises Ankle Pumps,Gluteal Sets,Quad Sets M7 PT-IP Assessment and Plan Start: 10/24/24 12:10 Freq: NEEDED Status: Active Protocol: Document 10/24/24 12:12 KJ (Rec: 10/24/24 12:28 KJ Desktop) PT Summary Assessment and Plan Potential Rehabilitation Good Potential Status of Condition Evolving at Evaluation Summary Impairments Balance,Transfers,Gait Progress Towards Slow Progress due to Medical Issues Goals Assessment Summary Mobility is good, memory is fluctuating leading to safety concerns Goals Bed Mobility Goal Independent Transfer Goal Independent Gait Goal Independent Gait Distance 100 Days to Meet Goals 5 Frequency of Treatment Frequency Of Once a Day Treatment Treatment Plan Physical Therapy Transfer Training,Gait Training,Therapeutic Exercise, Treatment Plan Balance Retraining Other Progress ambulation if patient is not light headed. Recommendations and Progress to balance exercise. Next Treatment Focus Recommendations To Nursing Amount of Assist 1 Person Assist Needed Discharge Recommendations PT Discharge Home with 24/ Assist Available Recommendations Equipment Needed for May need a cane for balance Home Before Discharge Transportation Needs Private Vehicle at Discharge
--- NOTE | 2024-10-24 14:10 | OT.IP.EVAL ---
Current Diagnoses Hyperlipidemia, unspecified (10/24/24) Unspecified dementia, unspecified severity, without behavioral disturbance, psychotic disturbance, mood disturbance, and anxiety (10/24/24) Essential (primary) hypertension (10/24/24) Unspecified symptoms and signs involving the nervous system (10/24/24) Syncope and collapse (10/24/24) Unspecified fracture of the lower end of left radius, initial encounter for closed fracture (10/24/24) Past Medical History (Last Updated 10/24/24 @ 07:11 by Chapo Stratton MD) Dementia History of constipation History of hydronephrosis History of urinary retention HLD (hyperlipidemia) HTN (hypertension) Urinary tract infection Occupational Therapy Inpatient Evaluation/Re-Eval M1 PT/OT-IP Prior Functional Status Start: 10/24/24 12:10 Freq: NEEDED Status: Active Protocol: Document 10/24/24 13:50 FLOR (Rec: 10/24/24 14:10 FLOR [facility]) Medical Review Prior Functional Status Medical History Yes Reviewed Communication Pt able to make needs known. Pt reports that her short term memory isn't good. Mobility and Gait Pt reports ambulating indep in mobility w/out AD Activities of Daily Indep self care. Niece prepares meals, drives, and Living and IADL's cleans Social History Household Members family Living Arrangements Apartment/Condo Number of Floors ( One Floor Floors) Number of Stairs To 0 Enter/Railing? Home Environment Standard Height Toilet,Walk in Shower Additional Social Pt recently moved to [facility] to live History Comment near her brother and niece. Her recently . M2 OT-IP Current Condition Start: 10/24/24 13:50 Freq: Status: Active Protocol: Document 10/24/24 13:50 FLOR (Rec: 10/24/24 14:10 [email or web address] [facility]) Occupational Therapy Current Condition Current Condition Evaluation Date 10/24/24 Treatment Diagnosis L distal radius fx, syncopal episode, decreased self care M3 OT- IP Subjective and Pain Start: 10/24/24 13:50 Freq: Status: Active Protocol: Document 10/24/24 13:50 FLOR (Rec: 10/24/24 14:10 [facility]) OT- Subjective Occupational Therapy Visit Type Type Initial Evaluation Visit Start Time 12:55 Visit Stop Time 13:16 Notes Pt reclined in bed on entrance of OT. Occupational Therapy Visit Comments Patient Comments Pt agrees to participate in OT eval. Pt reports that she has a hard time with her short term memory and doesn't know how she broke her wrist. She reports occasions of feeling lightheaded. Patient/Caregiver to go home Goals OT Pain Assessment Pain When Pain Assessed At Rest Pain Present Pain Present Pain Reported Location Left wrist Intensity 3 Scale Used Numeric (0 - 10) M4 OT- IP ADL's Start: 10/24/24 13:50 Freq: Status: Active Protocol: Document 10/24/24 13:50 FLOR (Rec: 10/24/24 14:10 [facility]) OT [id number] Comments OT Self-Feeding not observed Comments OT ADL-Grooming General Evaluation Grooming Ability Standby Assistance Areas Needing Retrieving/Set-up of Grooming Items Assistance Comments OT Grooming Comments Pt performs at sink side OT ADL-Oral Care Comments Oral Care Comments not observed OT ADL-Dressing General Eval Upper Body Dressing Minimal Assistance Ability Lower Body Dressing Minimal Assistance Ability Areas Needing Underpants/Brief,Socks Assistance Comments OT Dressing Comments pt is able to doff/don sock despite wrist/elbow splint. Pt will benefit from shamar dressing technique education and LB AE training. OT ADL-Toileting General Evaluation Toileting Ability Contact Guard Assistance Areas Needing Manage Clothing Assistance Devices Toileting Assistive Grab Bars Devices OT ADL-Bathing Comments OT Bathing Comments not observed M5 OT- IP IADL's Start: 10/24/24 13:50 Freq: Status: Active Protocol: Document 10/24/24 13:50 FLOR (Rec: 10/24/24 14:10 [facility]) OT-Instrumental Activities of Daily Living Home Safety Awareness Awareness of Need Good Awareness for Assistance at Home Ability to Problem Able to Problem Solve Solve Emergency Situations Medication Management Medication Caregiver Provides Supervision Management Money Management Money Management Caregiver Provides Supervision Meal Preparation Meal Preparation Caregiver Provides Assist Copyman Copyman Caregiver Provides Assist Driving Driving Caregiver Provides Assist M6 OT- IP Functional Cognition Start: 10/24/24 13:50 Freq: Status: Active Protocol: Document 10/24/24 13:50 FLOR (Rec: 10/24/24 14:10 [facility]) Cognitive Factors Limiting Selfcare Function Cognitive Ability Level of Alertness Alert Patient Orientation Name,Age,Birthday,Year,Place,Situation Attention Span Capable of Focused Attention,Capable of Sustained Ability Attention Ability to Follow Able to Follow One Step Commands,Able to Follow Multi- Commands Step Commands Memory Description Short Term Impaired Safety Awareness Underestimates Need for Assistance OT- Vision and Hearing OT- Hearing Assessment OT- Hearing WFL Assessment OT- Vision Assessment Visual Acuity WFL M7 OT- IP Mobility and Balance Start: 10/24/24 13:50 Freq: Status: Active Protocol: Document 10/24/24 13:50 FLOR (Rec: 10/24/24 14:10 [facility]) OT- Bed Mobility Assessment Supine to Sit Supine to Sit Assist Independent Sit to Supine Sit to Supine Assist Independent Scooting Scooting to Edge of Independent Bed OT-Transfer Assessment Sit to and From Stand Sit to and from Contact Guard Assistance,1 Person Assistance Stand Transfers Transfer Ability Contact Guard Assistance,1 Person Assistance Technique Transfer Destination Bed,Chair,Toilet Transfer Technique Stand Step Pivot Devices Transfer Assistive Gait Belt Devices Comments Mobility Comments Pt is somewhat impulsive and stands after OT asked her to remain seated. OT- Gait Assessment Gait Gait Assistance Contact Guard Assist Required: Distance (Feet) 25 Comments Gait Ability Pt amb throughout room to obtain brush and comb her Comments hair at sink side. Then pt amb to bathroom for toileting t/f prior to amb to chair. Pt had 1 LOB and was able to self correct. OT- Balance Assessment Sitting Balance and Reactions Static Sitting Normal Balance Ability Dynamic Sitting Good Balance Ability Standing Balance and Reactions Static Standing Good Balance Ability Dynamic Standing Fair Balance Ability M8 OT- IP Objective Assessments Start: 10/24/24 13:50 Freq: Status: Active Protocol: Document 10/24/24 13:50 FLOR (Rec: 10/24/24 14:10 [facility]) OT Gross Range of Motion Upper Extremity Range of Motion Assessment Within Functional Limits ROM Impairments Pt's R shoulder approximately 120 OT Strength Upper Extremity Strength Assessment Within Functional Limits Hand Pet Resort Concierge Strength Hand Dominance Right OT-Muscle Tone Assessment Muscle Tone WNL Yes OT Sensation Assessment Edema Edema Absent M9 OT- IP Assessment and Plan Start: 10/24/24 13:50 Freq: Status: Active Protocol: Document 10/24/24 13:50 FLOR (Rec: 10/24/24 14:10 FLOR Perez) OT Summary Assessment and Plan Potential Rehabilitation Excellent Potential Analytic Complexity Low at Evaluation Summary OT Impairments Balance,Functional Cognition,Functional Mobility, Grooming,Dressing,Toileting,Bathing,Toilet Transfers, Shower Transfers Progress Towards Progressing Toward Goals Goals Assessment Summary Pt is an 84 yo F who recently moved from [place] to live in an apartment adjacent to her niece and brother. Pt had a syncopal episode resulting in a fall at home and is s /p a L distal radius fx. Pt cannot remember the fall. Pt reports that she has been lightheaded recently. Pts BP at start of tx is 158/74 and oxygen 96% on room air. When sitting up in chair pt c/o feeling lightheaded, pts BP at that time was 155/66. Pt is unsteady at times when amb in room, having 1 LOB that she was able to self correct with CGA. Pt has decreased I with BADL and would benefit on education for shamar techniques with bathing and dressing as well as AE education for LB dressing. Pt would benefit from skilled OT services to address these deficits. Pt would benefit from d/c to 24/11 care for safety. Goals Grooming Goal Independent Dressing Goal Independent,Dressing Stick,Long Handled Shoe Horn, Pulp Beater,Sock Aid Bathing Goal Minimal Assistance Toilet Transfer Goal Independent,Grab Bars Shower Transfer Goal Independent,Walk-in Shower,Shower Chair Days to Meet Goals 5 Frequency of Treatment Other frequency 5x/wk Treatment Plan OT Treatment Plan ADL Training,Functional Mobility,Therapeutic Exercises, Patient/Family Education,Discharge Planning Other Treatment shamar ADL techniques, LB AE education Recommendations and Next Treatment Focus Discharge Recommendations OT Discharge Home with 24/11 Assist Available Recommendations Home Equipment Needs shower chair Transportation Needs Private Vehicle at Discharge
--- NOTE | 2024-10-24 14:11 | PM.DS.1 ---
History of Present Illness History of Present Illness Date Patient Seen: 10/24/24 Time Patient Seen: 14:11 Chief complaint: Fall, L Arm Injury, Vomiting Narrative: Per admitting provider, 84 y/o with PMH of HTN, dementia, HLD, sustained syncopal episode at home and fell injuring left arm. In the ED suspected for stroke as her daughter reported on slurred speech before the fall. Initial workup reassuring apart from distal radial fracture. Placed in observation with suspected stroke. Discharge Providers Provider Date of admission: 10/24/24 01:33 Discharge Date: 10/24/24 Primary care physician: YAIR Larkin Consults: 10/24/24 01:57 Consult to Occupational Therapy Evaluate & Treat Comment: Physician Instructions: Evaluate and treat Consult to Physical Therapy Evaluate & Treat Comment: Physician Instructions: Evaluate and Treat Discharge provider: Ulisses Benitez DO Summary Hospital Course Discharge Diagnosis: (1) Episode of syncope, orthostatic hypotension . (2) Fracture of left distal radius, acute, pathologic due to osteoporosis. (3) HTN (hypertension): (4) HLD (hyperlipidemia): (5) Dementia: Hospital Course: This is an 84-year-old female with a past medical history of hypertension, hyperlipidemia, and dementia who was admitted for further evaluation after an episode of syncope resulting in a fracture of her left distal radius. Her left arm was placed in a splint, and outpatient follow-up with Orthopedics as recommended after discharge. She did present with slurred speech prior to her fall, so was admitted for further evaluation and possible TIA workup. MRI was performed and was unremarkable. Echocardiogram showed no evidence of PFO, though her EF was borderline with global hypokinesis, but she had no other overt heart failure symptoms. Patient's niece reported prior history of orthostatic hypotension, which is consistent with her presentation. After risks benefit discussion, elected to not pursue treatment for possible TIA given likelihood of orthostatic hypotension with aspirin, Plavix, and statin therapy at this time. Her blood pressures were improved here in the hospital, though she can consider discontinuing olmesartan at home. No other changes to her medications are recommended at the time of discharge. Time Spent with Patient Time spent: Less than 30 minutes Exam Vital Signs (past 8 hours): - 10/24/24 08:00 10/24/24 08:00 Temperature 97.7 F Pulse Rate 68 Respiratory Rate 18 Blood Pressure 140/64 Pulse Oximetry 98 Oxygen Delivery Method Room Air Oxygen Flow Rate 0 Oxygen Delivery Method Room Air Oxygen Flow Rate 0 Narrative Exam Narrative: General - in no distress HEENT - atraumatic Neuro - cognitive deficits, memory loss, w/o focal deficits CVS - RRR RS - normal respiratory effort GI - not distended Objective Labs 10/23/24 22:00 10/23/24 22:00 Labs: Laboratory Results - last 24 hr 10/23/24 10/24/24 10/24/24 22:00 02:24 06:28 WBC 5.3 RBC 3.98 L Hgb 12.8 Hct 37.9 MCV 95.3 MCH 32.2 MCHC 33.8 RDW 13.5 Plt Count 191 Neut % (Auto) 63.7 Lymph % (Auto) 25.2 [place] % (Auto) 8.5 Eos % (Auto) 1.9 L Baso % (Auto) 0.7 Neut # (Auto) 3400 Lymph # (Auto) 1300 [place] # (Auto) 400 Eos # (Auto) 100 Baso # (Auto) 0 Sodium 133 L Potassium 3.4 Chloride 99 Carbon Dioxide 27 BUN 28 H Creatinine 0.74 Estimated GFR > 60 BUN/Creatinine Ratio 37.8 H Glucose 127 H Hemoglobin A1c 5.7 Calcium 9.4 Magnesium 2.0 Troponin I < 0.012 < 0.012 Triglycerides 38 Cholesterol 159 LDL Cholesterol, Calc 85 HDL Cholesterol 66 H Urine Color Urine Appearance Urine pH Ur Specific [place] Urine Protein Urine Glucose (UA) Urine Ketones Urine Occult Blood Urine Nitrate Urine Bilirubin Urine Urobilinogen Ur Leukocyte Esterase Urine RBC Urine WBC Ur Squamous Epith Cells Urine Bacteria Ur Culture Indicated? Vol Urine Centrifuged U Opiates 300ng/mL cut Ur Oxycodone Screen Urine Methadone Screen Ur Barbiturates Screen U Tricyclic Antidepress Ur Phencyclidine Scrn Ur Amphetamines Screen U Methamphetamines Scrn Ur MDMA Scrn (Ecstasy) U Benzodiazepines Scrn Urine Cocaine Screen U Marijuana (THC) Screen Urine Specific [place] Ethyl Alcohol < 10 Ur Creatinine 10/24/24 10/24/24 09:00 09:00 WBC RBC Hgb Hct MCV MCH MCHC RDW Plt Count Neut % (Auto) Lymph % (Auto) [place] % (Auto) Eos % (Auto) Baso % (Auto) Neut # (Auto) Lymph # (Auto) [place] # (Auto) Eos # (Auto) Baso # (Auto) Sodium Potassium Chloride Carbon Dioxide BUN Creatinine Estimated GFR BUN/Creatinine Ratio Glucose Hemoglobin A1c Calcium Magnesium Troponin I Triglycerides Cholesterol LDL Cholesterol, Calc HDL Cholesterol Urine Color Yellow Urine Appearance Clear Urine pH 5.0 Normal Ur Specific [place] 1.015 Urine Protein Negative Urine Glucose (UA) Negative Urine Ketones Negative Urine Occult Blood Negative Urine Nitrate Negative Urine Bilirubin Negative Urine Urobilinogen 0.2 Ur Leukocyte Esterase Negative Urine RBC 1-5/hpf Urine WBC 1-5/hpf Ur Squamous Epith Cells 1-5 /hpf Urine Bacteria Occasional (0-1) Ur Culture Indicated? Cult not indicated Vol Urine Centrifuged 10ml (spun) U Opiates 300ng/mL cut Negative Ur Oxycodone Screen Negative Urine Methadone Screen Negative Ur Barbiturates Screen Negative U Tricyclic Antidepress Negative Ur Phencyclidine Scrn Negative Ur Amphetamines Screen Negative U Methamphetamines Scrn Negative Ur MDMA Scrn (Ecstasy) Negative U Benzodiazepines Scrn Negative Urine Cocaine Screen Negative U Marijuana (THC) Screen Negative Urine Specific [place] Normal Ethyl Alcohol Ur Creatinine Normal PFSH Medical History (Updated 10/24/24 @ 07:11 by Chapo Stratton MD) Dementia HLD (hyperlipidemia) HTN (hypertension) History of constipation History of urinary retention Urinary tract infection History of hydronephrosis Social History marital status: number of children: 0 household members: family education level: college occupational status: previously employed 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 More likely etiology due to orthostatic hypotension, now improved. No changes are recommended on discharge, can consider olmesartan if symptoms recur or BP is noted to be lower at home. Electing not to start treatment for possible TIA given presentation and symptomatology, along with negative MRI. Please follow up with [facility] after discharge for follow up regarding fracture due to fall. Discharge orders & Medications Prescriptions: Continued donepezil [Aricept] 10 mg tablet 10 mg PO BEDTIME sennosides [Senna Lax] 8.6 mg tablet 8.6 mg PO DAILY rosuvastatin 5 mg tablet 5 mg PO DAILY memantine 10 mg tablet 10 mg PO QPM olmesartan 5 mg tablet 5 mg PO DAILY Follow up/Referrals: [facility] [Provider Group, Orthopedics] - 1 Week Referral Note: L distal radius fracture. Lana Lomeli ARNP [Primary Care Provider, Family Practice] Diet/Activity/Treatments Diet: Diet as Tolerated and Regular Activity: No restrictions Visit Report/Discharge Packet Instructions: DI for Syncope in Adults (Fainting), DI for Wrist Fracture Stand Alone Forms: Patient Portal/API, Stroke Signs & Symptoms Discharge Data Primary Care Provider: Lana Lomeli Attending Provider: Chapo Zheng Admit Date/Time: 10/24/24 01:33
[2024-10-24] MEDS: ACETAMINOPHEN 325 MG TABLET 650 MG PO (15:47)
--- NOTE | 2024-10-24 16:49 | CM.DANOTE ---
DCP Assessment note pt is a 84yo F admitted with stroke like symptoms, PMH of dementia. L wrist fx after GLF in home from [facility]. PCP Lana CORBETT Medicare and self pay [employer]IN[employer]CING R[employer] LAYER reviewed EMR. per provider, pending MRI/echo results may dc home today. per PT eval, rec home with 24/11. [employer]IN[employer]ING [employer] met with pt and caregiver Niece in room. pt pleasantly confused. per caregiver niece, she's with her in the home all the time, no DME at [facility], no hx of HH or SNF. they have a good set up at home, denies need for other community resources/PP CGs. P; home today vs tomorrow with family support pending further testing. no CM needs identified at this time. will continue to follow as needed in case any arise JOLEEN Garcia Discharge Planning/Care Management CM Discharge Assessment Start: 10/24/24 02:08 Freq: Status: Active Protocol: Document 10/24/24 16:38 SL (Rec: 10/24/24 16:40 SL Desktop) Discharge Planning Assessment Assigned Discharge JOLEEN Miles Academic Affairs Coordinator CYRUS/Assigned CYRUS Billy Designee Name Contact Information [phone] Advance Directives? Yes Advance Directives No on File History Provided By Family Member Prior Living Apartment/Condo Arrangements Household Members family Type of Relies on Others transporation used prior to admit Is patient alert and No oriented? Needs Assistance Meal Prep,Managing Medications,Home Chores / Shopping With Barriers to No Discharge Discharge Plan Home Referrals Initiated None needed Whiteboard Updated No in Patient Room with name and ext. # of Lens Marker Review Status In Process Please Provide Date 10/24/24 Initial DC Assessment Was Performed Next Review Type Continued Stay Review Document 10/24/24 16:48 SL (Rec: 10/24/24 16:48 SL Desktop) Discharge Planning Assessment Assigned Discharge JOLEEN Miles/Assigned CYRUS Billy Designee Name Contact Information [phone] Advance Directives? Yes Advance Directives No on File History Provided By Family Member Prior Living Apartment/Condo Arrangements Household Members family Type of Relies on Others transporation used prior to admit Is patient alert and No oriented? Needs Assistance Meal Prep,Managing Medications,Home Chores / Shopping With Barriers to No Discharge Discharge Plan Home Referrals Initiated None needed Whiteboard Updated No in Patient Room with name and ext. # of Lens Marker Review Status In Process Please Provide Date 10/24/24 Initial DC Assessment Was Performed Next Review Type Continued Stay Review
== END 2024-10-24 17:45 | disposition home or self-care (01) ==
LOC: ED 21:48 → AC 10-24 01:34
PROVIDERS: Admitting Provider Internal Medicine; Emergency Provider Emergency Medicine; Family Provider Nurse Practitioner; PCP Nurse Practitioner; Visit Provider Internal Medicine
DX: R55 Syncope and collapse (principal); S52.502A Unspecified fracture of the lower end of left radius, initial encounter for closed fracture; I10 Essential (primary) hypertension; E78.5 Hyperlipidemia, unspecified; F03.90 Unspecified dementia, unspecified severity, without behavioral disturbance, psychotic disturbance, mood disturbance, and anxiety; W18.30XA Fall on same level, unspecified, initial encounter
CPT/HCPCS: 29105; 36415; 70450; 70496; 70498; 70551; 71045; 73090; 80048; 80061; 80305; 80320; 81001; 83036; 83735; 84484; 85025; 93005; 93010; 93306; 96374; 96375; 97161; 97165; 97530; 99284; G0378; J1171; J1885; Q9967